=== PATIENT | male | born 1945 | race Caucasian/White ===

== ENCOUNTER → 2018-11-13 15:05 | Outpatient (CLI) | payer MEDICARE, BC, SELFPAY ==
[2018-11-13 14:26] VITALS: BMI 34.2
[2018-11-13 17:08] LABS: T4 Total, Thyroxin 7.1 ug/dL (4.5-12.1); Thyroid Stim Hormone (TSH) 1.64 uIU/mL (0.358-3.74)
== END ==
PROVIDERS: Family Provider Internal Medicine; PCP Internal Medicine; Referring Provider Internal Medicine Cardiovascular Disease; Visit Provider Internal Medicine Cardiovascular Disease
DX: R00.2 Palpitations (principal)
CPT/HCPCS: 36415; 84436; 84443

== ENCOUNTER → 2018-11-15 10:54 | Outpatient (CLI) | payer MEDICARE, BC, SELFPAY ==
[2018-11-13 14:26] VITALS: BMI 34.2
== END ==
PROVIDERS: Family Provider Internal Medicine; PCP Internal Medicine; Referring Provider Internal Medicine Cardiovascular Disease; Visit Provider Internal Medicine Cardiovascular Disease
DX: R00.2 Palpitations (principal)
CPT/HCPCS: 93225; 93226

== ENCOUNTER → 2018-12-02 13:37 | Outpatient (CLI) | payer MEDICARE, BC, SELFPAY ==
[2018-11-13 14:26] VITALS: BMI 34.2
--- NOTE | 2018-12-02 13:38 | ECHOCS_ITS ---
Reason For Study: AFIB Procedure This was a 2D Doppler, Color Flow transthoracic echocardiogram. The study was technically difficult. Contrast injection was performed. Exam performed in department. Left Ventricle Normal LV size. Left ventricular systolic function is normal. The estimated ejection fraction is 60 %. Stage 1 diastolic dysfunction. No regional wall motion abnormalities noted. Right Ventricle Normal RV size. Normal systolic function. Atria Normal left atrium. Normal right atrium. Mitral Valve Normal mitral valve. Tricuspid Valve Normal tricuspid valve. Mild (1+) tricuspid valve insufficiency. Pulmonary artery systolic pressure is 34 mmHg. Aortic Valve The aortic valve is not well visualized. Pulmonic Valve The pulmonic valve is not well visualized. Great Vessels Normal aortic root. The pulmonary artery is normal size. Normal inferior vena cava. Pericardium/Pleural No pericardial effusion. Medication 22 gauge I.V. with prn adaptor inserted into right arm. Diluted definity 3.5ml given slow IV push to enhance endocardial definition. MMode/2D Measurements & Calculations LVIDd: 4.8 cm IVSd: 1.0 cm Ao root diam: 3.8 cm LVIDs: 3.2 cm LVPWd: 1.0 cm FS: 33.9 % LAV(MOD-bp): 68.2 ml LVAd ap4: 31.0 cm2 SV(MOD-sp4): 73.3 ml LAV(MOD-bp) Indexed: 29.9 ml/m2 EDV(MOD-sp4): 103.9 ml LAV(MOD-sp2): 79.4 ml EDV(sp4-el): 107.2 ml LAV(MOD-sp4): 56.9 ml LVAs ap4: 14.4 cm2 ESV(MOD-sp4): 30.6 ml ESV(sp4-el): 31.4 ml EF(MOD-sp4): 70.5 % EF(sp4-el): 70.7 % SV(sp4-el): 75.8 ml LA A4 area: 20.3 cm2 LA dimension(2D): 4.1 cm RA A4 area: 15.1 cm2 Time Measurements MV dec time: 0.21 sec Doppler Measurements & Calculations MV E max abdiaziz: 70.0 cm/sec Lat Peak E' Abdiaziz: 6.5 cm/sec Med Peak E' Abdiaziz: 5.7 cm/sec MV A max abdiaziz: 92.7 cm/sec E/E' lat: 10.7 E/E' med: 12.3 MV E/A: 0.76 Ao V2 max: 144.5 cm/sec LV V1 max: 112.4 cm/sec PA V2 max: 108.1 cm/sec Ao max P.4 mmHg LV V1 max P.1 mmHg PI end-d abdiaziz: 128.5 cm/sec TR max abdiaziz: 266.5 cm/sec TR max P.5 mmHg Interpretation Summary Normal LV size. Left ventricular systolic function is normal. The estimated ejection fraction is 60 %. Stage 1 diastolic dysfunction. Contrast injection was performed. Ordering Physician: Moris Mendes Referring Physician: CHRISTOFER DUBOIS Performed By: Kandice Becker, AZAR, RVT
== END ==
PROVIDERS: Family Provider Internal Medicine; PCP Internal Medicine; Referring Provider Internal Medicine Cardiovascular Disease; Visit Provider Internal Medicine Cardiovascular Disease
DX: I48.91 Unspecified atrial fibrillation (principal); I48.92 Unspecified atrial flutter; R00.2 Palpitations
CPT/HCPCS: 93306; Q9957; A4216; C8929

== ENCOUNTER → 2019-02-04 17:19 | Outpatient (CLI) | payer MEDICARE, BC, SELFPAY ==
[2018-11-13 14:26] VITALS: BMI 34.2
[2019-02-04 18:13] LABS: Absolute Lymphocyte Count 1.75 X10^3/uL (0.83-4.51); Absolute Neutrophil Count 4.2 X10^3/uL (2.0-7.7); Basophil# 0.01 X10^3/uL; Basophil% 0.1 % (0-1); Eosinophil# 0.25 X10^3/uL; Eosinophils% 3.5 % (0-5); Hematocrit 43.6 % (40-54); Hemoglobin 14.9 g/dL (13.0-16.5); Lymphocyte # 1.75 X10^3/ul (4.0); Lymphocyte % 24.8 % (19-41); Mean Corp Hgb Conc 34.2 g/dL (32-36); Mean Corpuscular Hgb 31.4 pg (27.0-32.0); Mean Platelet Vol. 9.8 fl (6.2-12.0); Monocyte# 0.83 X10^3/uL; Monocyte% 11.8 % (0-10); NRBC Flagged by Analyzer 0 % (0-5); Neutrophil % 59.5 % (47-70); Platelet Count 171 K/mm3 (150-450); RBC Distribution Width SD 43.4 fl (35.1-43.9); Red Blood Count 4.74 M/mm3 (4.6-6.2); White Blood Count 7.1 K/mm3 (4.4-11.0)
[2019-02-04 18:19] LABS: ALB/GLOB Ratio 0.9 RATIO (0.9-2.4); AST(SGOT) 20 U/L (15-37); Alanine Aminotransfer ALT/SGPT 17 U/L (16-61); Albumin, Serum 3.4 g/dL (3.2-5.0); Alkaline Phosphatase 71 U/L (45-117); Anion Gap 4 (5-15); BUN 16 mg/dL (7-18); BUN/Creat Ratio 19.3 RATIO (10-20); Calcium,Total 9.1 mg/dL (8.5-10.1); Chloride 104 mmol/L (98-107); Creatinine, Serum 0.83 mg/dL (0.70-1.30); EST Glomerular Filtration Rate 96 mL/min (>60); Est Glom Filt Rate - Afr Amer 116 mL/min (>60); Globulin 3.6 g/dL (2.2-4.2); Glucose 97 mg/dL (74-106); Potassium 3.9 mmol/L (3.5-5.1); Sodium Level 139 mmol/L (136-145); Thyroid Stim Hormone (TSH) 3.11 uIU/mL (0.358-3.74)
== END ==
PROVIDERS: Visit Provider Family Medicine Geriatric Medicine
DX: I10 Essential (primary) hypertension (principal)
CPT/HCPCS: 36415; 80053; 84443; 85025

== ENCOUNTER → 2019-02-18 09:16 | Outpatient (CLI) | payer MEDICARE, BC, SELFPAY ==
[2018-11-13 14:26] VITALS: BMI 34.2
--- NOTE | 2019-02-18 09:44 | US_ITS ---
PROCEDURES: ULTRASOUND AORTA REASON FOR EXAM: Male, 74 years old. Aortic aneurysm screening TECHNIQUE: Ultrasound evaluation of the aorta was performed with real-time and static barger-scale imaging. COMPARISON: None. FINDINGS: There is no elongation or tortuosity of the abdominal aorta. There is mild multifocal plaquing. Aorta measures: Proximal 2.2 cm. Middle 1.3 cm. Distal 1.7 cm. Aorta measure transversely: Proximal 2.2 cm. Middle 1.6 cm. Distal 1.8 cm. Right iliac artery measures: 1.2 cm. Right iliac artery measure transversely: 1.4 cm. Left iliac artery measures: 1.3 cm. Left iliac artery measure transversely: 1.5 cm. There is no demonstrated aneurysm.. US/Aorta IMPRESSION: Atherosclerotic changes without evidence for aneurysm. Electronically Signed: Mani Mueller MD at 17:04 EDT , Service support ,
== END ==
PROVIDERS: Family Provider Family Medicine Geriatric Medicine; PCP Family Medicine Geriatric Medicine; Referring Provider Family Medicine Geriatric Medicine; Visit Provider Family Medicine Geriatric Medicine
DX: Z13.89 Encounter for screening for other disorder (principal)
CPT/HCPCS: 76775

== ENCOUNTER → 2019-10-08 13:29 | Outpatient (CLI) | payer MEDICARE, BC, SELFPAY ==
[2019-04-03 11:55] VITALS: BMI 34.2
[2019-10-08 15:53] LABS: Absolute Lymphocyte Count 1.61 X10^3/uL (0.83-4.51); Absolute Neutrophil Count 4.2 X10^3/uL (2.0-7.7); Basophil# 0.02 X10^3/uL; Basophil% 0.3 % (0-1); Eosinophil# 0.11 X10^3/uL; Eosinophils% 1.7 % (0-5); Hematocrit 45.5 % (40-54); Hemoglobin 15.7 g/dL (13.0-16.5); Lymphocyte # 1.61 X10^3/ul (4.0); Lymphocyte % 24.2 % (19-41); Mean Corp Hgb Conc 34.5 g/dL (32-36); Mean Corpuscular Hgb 31.9 pg (27.0-32.0); Mean Corpuscular Volume 92.5 fL (80-94); Mean Platelet Vol. 10.1 fl (6.2-12.0); Monocyte# 0.65 X10^3/uL; Monocyte% 9.8 % (0-10); NRBC Flagged by Analyzer 0 % (0-5); Neutrophil # 4.23 X10^3/uL (2.7-7.7); Neutrophil % 63.7 % (47-70); Platelet Count 192 K/mm3 (150-450); RBC Distribution Width CV 12.6 % (11.6-14.6); Red Blood Count 4.92 M/mm3 (4.6-6.2); White Blood Count 6.6 K/mm3 (4.4-11.0)
[2019-10-08 16:09] LABS: Vitamin D,25 Hydroxy 33.8 ng/mL
[2019-10-08 16:16] LABS: AST(SGOT) 24 U/L (15-37); Alanine Aminotransfer ALT/SGPT 26 U/L (16-61); Albumin, Serum 3.7 g/dL (3.2-5.0); Alkaline Phosphatase 77 U/L (45-117); Anion Gap 6 (5-15); BUN 17 mg/dL (7-18); BUN/Creat Ratio 17.5 RATIO (10-20); Calcium,Total 9.2 mg/dL (8.5-10.1); Chloride 104 mmol/L (98-107); Creatinine, Serum 0.97 mg/dL (0.70-1.30); EST Glomerular Filtration Rate 80 mL/min (>60); Est Glom Filt Rate - Afr Amer 97 mL/min (>60); Globulin 3.6 g/dL (2.2-4.2); Glucose 135 mg/dL (74-106); Potassium 3.5 mmol/L (3.5-5.1); Protein, Total 7.3 g/dL (6.4-8.2); Sodium Level 140 mmol/L (136-145)
[2019-10-09 09:40] LABS: Hemoglobin A1c 5.5 % (3.8-5.6)
== END ==
PROVIDERS: PCP Family Medicine Geriatric Medicine; Visit Provider Family Medicine Geriatric Medicine
DX: E55.9 Vitamin D deficiency, unspecified (principal); I10 Essential (primary) hypertension; R79.9 Abnormal finding of blood chemistry, unspecified
CPT/HCPCS: 36415; 80053; 82306; 83036; 84443; 85025

== ENCOUNTER → 2020-02-10 14:04 | Outpatient (CLI) | payer MEDICARE, BC, SELFPAY ==
[2019-04-03 11:55] VITALS: BMI 34.2
[2020-02-10 18:20] LABS: Absolute Lymphocyte Count 1.48 X10^3/uL (0.83-4.51); Absolute Neutrophil Count 3.7 X10^3/uL (2.0-7.7); Basophil# 0.03 X10^3/uL; Basophil% 0.5 % (0-1); Eosinophil# 0.12 X10^3/uL; Hematocrit 45.8 % (40-54); Hemoglobin 15.7 g/dL (13.0-16.5); Lymphocyte # 1.48 X10^3/ul (4.0); Lymphocyte % 24.6 % (19-41); Mean Corp Hgb Conc 34.3 g/dL (32-36); Mean Corpuscular Hgb 32.2 pg (27.0-32.0); Mean Corpuscular Volume 93.9 fL (80-94); Mean Platelet Vol. 9.9 fl (6.2-12.0); Monocyte# 0.67 X10^3/uL; Monocyte% 11.1 % (0-10); NRBC Flagged by Analyzer 0 % (0-5); Neutrophil # 3.69 X10^3/uL (2.7-7.7); Neutrophil % 61.3 % (47-70); Platelet Count 200 K/mm3 (150-450); RBC Distribution Width CV 12.6 % (11.6-14.6); RBC Distribution Width SD 43.5 fl (35.1-43.9); Red Blood Count 4.88 M/mm3 (4.6-6.2)
[2020-02-10 18:50] LABS: Vitamin D,25 Hydroxy 57.4 ng/mL
[2020-02-10 19:02] LABS: AST(SGOT) 30 U/L (15-37); Alanine Aminotransfer ALT/SGPT 30 U/L (16-61); Albumin, Serum 3.6 g/dL (3.2-5.0); Alkaline Phosphatase 103 U/L (45-117); Anion Gap 6 (5-15); BUN 18 mg/dL (7-18); BUN/Creat Ratio 20.2 RATIO (10-20); Calcium,Total 9.1 mg/dL (8.5-10.1); Chloride 103 mmol/L (98-107); Creatinine, Serum 0.89 mg/dL (0.70-1.30); EST Glomerular Filtration Rate 88 mL/min (>60); Est Glom Filt Rate - Afr Amer 107 mL/min (>60); Globulin 3.6 g/dL (2.2-4.2); Glucose 133 mg/dL (74-106); Potassium 3.2 mmol/L (3.5-5.1); Protein, Total 7.2 g/dL (6.4-8.2); Sodium Level 139 mmol/L (136-145); Thyroid Stim Hormone (TSH) 1.68 uIU/mL (0.358-3.74)
== END ==
PROVIDERS: PCP Family Medicine Geriatric Medicine; Visit Provider Family Medicine Geriatric Medicine
DX: E55.9 Vitamin D deficiency, unspecified (principal); I10 Essential (primary) hypertension
CPT/HCPCS: 36415; 80053; 82306; 84443; 85025

== ENCOUNTER → 2020-02-20 10:34 | Outpatient (CLI) | payer MEDICARE, BC, SELFPAY ==
[2019-04-03 11:55] VITALS: BMI 34.2
[2020-02-20 11:56] LABS: Anion Gap 6 (5-15); BUN 14 mg/dL (7-18); BUN/Creat Ratio 14.9 RATIO (10-20); Calcium,Total 9.2 mg/dL (8.5-10.1); Chloride 106 mmol/L (98-107); Creatinine, Serum 0.94 mg/dL (0.70-1.30); EST Glomerular Filtration Rate 83 mL/min (>60); Est Glom Filt Rate - Afr Amer 100 mL/min (>60); Glucose 105 mg/dL (74-106); Sodium Level 140 mmol/L (136-145)
[2020-02-20 12:03] LABS: Hemoglobin A1c 5.5 % (3.8-5.6)
== END ==
PROVIDERS: PCP Family Medicine Geriatric Medicine; Visit Provider Family Medicine Geriatric Medicine
DX: E87.6 Hypokalemia (principal); R79.9 Abnormal finding of blood chemistry, unspecified
CPT/HCPCS: 36415; 80048; 83036

== ENCOUNTER → 2020-08-25 14:49 | Outpatient (CLI) | payer MEDICARE, SELFPAY ==
[2020-03-23 11:39] VITALS: BMI 33.9
[2020-08-25 16:15] LABS: Absolute Lymphocyte Count 1.58 X10^3/uL (0.83-4.51); Basophil# 0.02 X10^3/uL; Basophil% 0.3 % (0-1); Eosinophil# 0.17 X10^3/uL; Eosinophils% 2.2 % (0-5); Hematocrit 45.6 % (40-54); Hemoglobin 14.9 g/dL (13.0-16.5); Lymphocyte # 1.58 X10^3/ul (0.83-4.51); Mean Corp Hgb Conc 32.7 g/dL (32-36); Mean Corpuscular Hgb 30.5 pg (27.0-32.0); Mean Corpuscular Volume 93.4 fL (80-94); Mean Platelet Vol. 10.1 fl (6.2-12.0); Monocyte# 1.07 X10^3/uL; Monocyte% 13.6 % (0-10); NRBC Flagged by Analyzer 0 % (0-5); Neutrophil # 5.03 X10^3/uL (2.7-7.7); Neutrophil % 63.6 % (47-70); Platelet Count 179 K/mm3 (150-450); RBC Distribution Width CV 12.7 % (11.6-14.6); RBC Distribution Width SD 43.4 fl (35.1-43.9); Red Blood Count 4.88 M/mm3 (4.6-6.2); White Blood Count 7.9 K/mm3 (4.4-11.0)
[2020-08-25 16:21] LABS: Vitamin D,25 Hydroxy 77.2 ng/mL
[2020-08-25 16:34] LABS: ALB/GLOB Ratio 1.1 RATIO (0.9-2.4); AST(SGOT) 23 U/L (15-37); Alanine Aminotransfer ALT/SGPT 25 U/L (16-61); Albumin, Serum 3.5 g/dL (3.2-5.0); Alkaline Phosphatase 67 U/L (45-117); Anion Gap 2 (5-15); BUN 18 mg/dL (7-18); BUN/Creat Ratio 18.7 RATIO (10-20); Calcium,Total 9.3 mg/dL (8.5-10.1); Chloride 103 mmol/L (98-107); Creatinine, Serum 0.96 mg/dL (0.70-1.30); EST Glomerular Filtration Rate 80 mL/min (>60); Est Glom Filt Rate - Afr Amer 97 mL/min (>60); Globulin 3.2 g/dL (2.2-4.2); Glucose 102 mg/dL (74-106); Potassium 3.3 mmol/L (3.5-5.1); Protein, Total 6.7 g/dL (6.4-8.2); Sodium Level 139 mmol/L (136-145); Thyroid Stim Hormone (TSH) 2.19 uIU/mL (0.358-3.74)
== END ==
PROVIDERS: PCP Family Medicine Geriatric Medicine; Visit Provider Family Medicine Geriatric Medicine
DX: E55.9 Vitamin D deficiency, unspecified (principal); F52.8 Other sexual dysfunction not due to a substance or known physiological condition; I10 Essential (primary) hypertension
CPT/HCPCS: 36415; 80053; 82306; 84403; 84443; 85025

== ENCOUNTER → 2020-08-26 10:49 | Outpatient (CLI) | payer MEDICARE, SELFPAY ==
[2020-03-23 11:39] VITALS: BMI 33.9
--- NOTE | 2020-08-26 10:53 | RAD_ITS ---
STUDY: X-RAY - LUMBAR SPINE REASON FOR EXAM: Male, 75 years old. BACK PAIN TECHNIQUE: 3 view(s) of the lumbar spine were obtained. COMPARISON: None FINDINGS: Normal lumbar lordosis. There is no substantial scoliosis. There is a normal alignment of the vertebrae. There is multilevel endplate spondylosis of the lumbar vertebrae. There is multi-level degenerative disc disease with multi-level disc space narrowing. The soft tissue structures are unremarkable. RAD/Lumbar Spine 2 or 3 Views IMPRESSION: Mild diffuse degenerative disc disease. MRI would be useful. Electronically Signed: Quinton López MD at 11:49 EDT Tel , Service support ,
--- NOTE | 2020-08-26 10:53 | RAD_ITS ---
STUDY: X-RAY - RIGHT KNEE REASON FOR EXAM: Male, 75 years old. KNEE PAIN TECHNIQUE: 4 view(s) of the knee. COMPARISON: None. FINDINGS: Normal visualized distal femur. Normal visualized proximal tibia and fibula. Normal proximal tibiofibular articulation. There is mild degenerative arthrosis of the medial femorotibial compartment. Normal lateral femorotibial compartment. Normal patellofemoral articulation. Calcification of the distal quadriceps tendon. RAD/Knee 3 Views IMPRESSION: Degenerative arthrosis. Electronically Signed: Quinton López MD at 11:49 EDT Tel , Service support ,
== END ==
PROVIDERS: PCP Family Medicine Geriatric Medicine; Visit Provider Family Medicine Geriatric Medicine
DX: M54.5 Low back pain (principal); M25.569 Pain in unspecified knee
CPT/HCPCS: 72100; 73562

== ENCOUNTER → 2020-09-06 10:08 | Outpatient (CLI) | payer MEDICARE, SELFPAY ==
[2020-03-23 11:39] VITALS: BMI 33.9
[2020-09-06 12:32] LABS: Anion Gap 6 (5-15); BUN 17 mg/dL (7-18); BUN/Creat Ratio 19.3 RATIO (10-20); Calcium,Total 8.9 mg/dL (8.5-10.1); Chloride 106 mmol/L (98-107); Creatinine, Serum 0.88 mg/dL (0.70-1.30); EST Glomerular Filtration Rate 89 mL/min (>60); Est Glom Filt Rate - Afr Amer 108 mL/min (>60); Glucose 117 mg/dL (74-106); Potassium 3.7 mmol/L (3.5-5.1); Sodium Level 141 mmol/L (136-145)
== END ==
PROVIDERS: PCP Family Medicine Geriatric Medicine; Visit Provider Family Medicine Geriatric Medicine
DX: E87.6 Hypokalemia (principal)
CPT/HCPCS: 36415; 80048

== ENCOUNTER → 2021-02-14 14:25 | Outpatient (CLI) | payer MEDICARE, SELFPAY ==
[2021-02-14 17:37] LABS: Absolute Lymphocyte Count 1.51 X10^3/uL (0.83-4.51); Absolute Neutrophil Count 3.5 X10^3/uL (2.0-7.7); Basophil# 0.02 X10^3/uL; Basophil% 0.3 % (0-1); Eosinophil# 0.16 X10^3/uL; Eosinophils% 2.7 % (0-5); Hemoglobin 15.8 g/dL (13.0-16.5); Lymphocyte # 1.51 X10^3/ul (0.83-4.51); Lymphocyte % 25.4 % (19-41); Mean Corp Hgb Conc 35.1 g/dL (32-36); Mean Corpuscular Hgb 32.4 pg (27.0-32.0); Mean Corpuscular Volume 92.4 fL (80-94); Monocyte# 0.76 X10^3/uL; Monocyte% 12.8 % (0-10); NRBC Flagged by Analyzer 0 % (0-5); Neutrophil # 3.46 X10^3/uL (2.7-7.7); Neutrophil % 58.3 % (47-70); Platelet Count 190 K/mm3 (150-450); RBC Distribution Width CV 13.2 % (11.6-14.6); RBC Distribution Width SD 45.4 fl (35.1-43.9); Red Blood Count 4.87 M/mm3 (4.6-6.2); White Blood Count 5.9 K/mm3 (4.4-11.0)
[2021-02-14 17:57] LABS: Vitamin D,25 Hydroxy 92.1 ng/mL
[2021-02-14 18:07] LABS: ALB/GLOB Ratio 0.9 RATIO (0.9-2.4); AST(SGOT) 24 U/L (15-37); Alanine Aminotransfer ALT/SGPT 24 U/L (16-61); Albumin, Serum 3.3 g/dL (3.2-5.0); Alkaline Phosphatase 63 U/L (45-117); Anion Gap 7 (5-15); BUN 17 mg/dL (7-18); BUN/Creat Ratio 18.4 RATIO (10-20); Calcium,Total 9.1 mg/dL (8.5-10.1); Chloride 104 mmol/L (98-107); Creatinine, Serum 0.92 mg/dL (0.70-1.30); EST Glomerular Filtration Rate 84 mL/min (>60); Est Glom Filt Rate - Afr Amer 102 mL/min (>60); Globulin 3.5 g/dL (2.2-4.2); Glucose 129 mg/dL (74-106); Potassium 3.7 mmol/L (3.5-5.1); Protein, Total 6.8 g/dL (6.4-8.2); Sodium Level 140 mmol/L (136-145)
== END ==
PROVIDERS: PCP Family Medicine Geriatric Medicine; Visit Provider Family Medicine Geriatric Medicine
DX: I10 Essential (primary) hypertension (principal); F52.8 Other sexual dysfunction not due to a substance or known physiological condition; E55.9 Vitamin D deficiency, unspecified
CPT/HCPCS: 36415; 80053; 82306; 84403; 84443; 85025

== ENCOUNTER → 2021-09-05 | Outpatient (CLI) | payer MEDICARE, SELFPAY ==
[2021-09-05 17:14] LABS: Absolute Neutrophil Count 4.2 X10^3/uL (2.0-7.7); Basophil# 0.01 X10^3/uL; Basophil% 0.1 % (0-1); Eosinophil# 0.14 X10^3/uL; Eosinophils% 2.1 % (0-5); Hematocrit 43.5 % (40-54); Hemoglobin 15.4 g/dL (13.0-16.5); Lymphocyte % 24.9 % (19-41); Mean Corp Hgb Conc 35.4 g/dL (32-36); Mean Corpuscular Hgb 32.6 pg (27.0-32.0); Monocyte# 0.74 X10^3/uL; Monocyte% 10.9 % (0-10); NRBC Flagged by Analyzer 0 % (0-5); Neutrophil # 4.18 X10^3/uL (2.7-7.7); Neutrophil % 61.3 % (47-70); Platelet Count 183 K/mm3 (150-450); RBC Distribution Width CV 12.5 % (11.6-14.6); RBC Distribution Width SD 42.4 fl (35.1-43.9); Red Blood Count 4.73 M/mm3 (4.6-6.2); White Blood Count 6.8 K/mm3 (4.4-11.0)
[2021-09-05 17:26] LABS: Vitamin D,25 Hydroxy 54.7 ng/mL
[2021-09-05 17:36] LABS: ALB/GLOB Ratio 1.1 RATIO (0.9-2.4); AST(SGOT) 23 U/L (15-37); Alanine Aminotransfer ALT/SGPT 25 U/L (16-61); Albumin, Serum 3.6 g/dL (3.2-5.0); Alkaline Phosphatase 60 U/L (45-117); Anion Gap 7 (5-15); BUN 19 mg/dL (7-18); BUN/Creat Ratio 18.1 RATIO (10-20); Chloride 104 mmol/L (98-107); Creatinine, Serum 1.05 mg/dL (0.70-1.30); EST Glomerular Filtration Rate 73 mL/min (>60); Est Glom Filt Rate - Afr Amer 88 mL/min (>60); Globulin 3.3 g/dL (2.2-4.2); Glucose 137 mg/dL (74-106); Potassium 3.5 mmol/L (3.5-5.1); Protein, Total 6.9 g/dL (6.4-8.2); Sodium Level 139 mmol/L (136-145); Thyroid Stim Hormone (TSH) 1.81 uIU/mL (0.358-3.74)
[2021-09-06 10:53] LABS: Hemoglobin A1c 5.3 % (3.8-5.6)
== END | disposition home or self-care (01) ==
LOC: POLAB3 11:34
PROVIDERS: PCP Family Medicine Geriatric Medicine; Visit Provider Family Medicine Geriatric Medicine
DX: I10 Essential (primary) hypertension (principal); F52.8 Other sexual dysfunction not due to a substance or known physiological condition; E55.9 Vitamin D deficiency, unspecified; R73.9 Hyperglycemia, unspecified
CPT/HCPCS: 36415; 80053; 82306; 83036; 84403; 84443; 85025

== ENCOUNTER → 2021-11-18 | Outpatient (CLI) | payer MEDICARE, SELFPAY ==
--- NOTE | 2021-11-18 10:55 | RAD_ITS ---
STUDY: X-RAY - PELVIS AND LEFT HIP REASON FOR EXAM: Male, 76 years old. HIP PAIN TECHNIQUE: XR Hip Unilateral with Pelvis when performed; 2-3 Views COMPARISON: None. FINDINGS: There is a non-specific bowel gas pattern. Normal visualized soft tissue structures. There are degenerative changes of the lumbar spine. Normal bilateral iliac wings, sacroiliac joints and visualized sacrum. Normal bilateral superior and inferior pubic rami. Normal pubic symphysis. Normal bilateral ischial tuberosities. Normal visualized femoral head. Normal acetabulum. There is mild articular joint space narrowing of the hip. RAD/HIP, UNI W/ Pelvis 2-3 Views IMPRESSION: Degenerative findings of the hips. Electronically Signed: Chaparro Hughes MD at 16:55 EDT ,
== END | disposition home or self-care (01) ==
LOC: RAD 10:51
PROVIDERS: PCP Family Medicine Geriatric Medicine; Referring Provider Family Medicine Geriatric Medicine; Visit Provider Family Medicine Geriatric Medicine
DX: M25.552 Pain in left hip (principal)
CPT/HCPCS: 73502

== ENCOUNTER 2022-01-06 08:56 | Inpatient (IN) | payer MEDICARE, SELFPAY ==
[2022-01-06] VITALS (13 sets, daily range): BP systolic 97–156; BP diastolic 50–121; PULSE 66–151; RESP 16–21; TEMP 35.8–37.1; O2SAT 94–96; BMI 34.8; BMI 35.4
--- NOTE | 2022-01-06 09:20 | EKG12_ITS ---
Test Reason : PALPS Blood Pressure : / mmHG Vent. Rate : 166 BPM Atrial Rate : 000 BPM P-R Int : 000 ms QRS Dur : 082 ms QT Int : 274 ms P-R-T Axes : 000 -35 030 degrees QTc Int : 455 ms Supraventricular tachycardia with Premature supraventricular complexes Left axis deviation Inferior infarct , age undetermined Abnormal ECG Confirmed by MANJU SINGER, KEKE ([id number]), editor city CHRIS BEAR ([id number]) on 01/09/2022 9:35:57 AM Referred By: TRUDY Confirmed By:LINDSAY NUNES MD
--- NOTE | 2022-01-06 09:23 | EX.ED.DYSGE1 ---
HPI <LIBAN Mabry - Last Filed: 01/06/22 10:55> History of Present Illness Chief Complaint: Palpitations Narrative Narrative: 76-year-old male with history of hypertension, arthritis, obesity presents to the emergency department for palpitations, diaphoresis. Patient states that last evening during his sleep, he felt that his heart was racing, he also was sweating. This morning he was on his way to physical therapy, when he was sweating profusely, he did see cardiology who saw that he had a rapid heart rate and sent him to the emergency department. Patient denies any shortness of breath. Patient states he has no pain. He does take metoprolol so he states that his resting heart rate is usually lower. [facility] <LIBAN Mabry - Last Filed: 01/06/22 10:55> [facility] Medical History (Updated 01/06/22 @ 10:55 by LIBAN Mabry) Benign neoplasm of colon Diverticulosis Essential (primary) hypertension IBS (irritable bowel syndrome) Lichenoid keratosis Melanoma Obesity Obstructive sleep apnea Home Medications fluticasone propionate 50 mcg/actuation nasal spray,suspension (Allergy Relief (fluticasone)) 2 spray intranasal DAILY PRN 11/12/18 [History Last Taken Unknown] hydrochlorothiazide 25 mg tablet 25 mg PO DAILY 11/12/18 [History Last Taken Unknown] losartan 50 mg tablet (Cozaar) 50 mg PO DAILY 11/12/18 [History Last Taken Unknown] multivitamin 1 tab PO DAILY 11/12/18 [History Last Taken Unknown] metoprolol succinate 100 mg tablet,extended release 24 hr (Toprol XL) 100 mg PO DAILY #90 tabs 06/21/21 [Rx Last Taken Unknown] doxycycline hyclate 100 mg capsule 100 mg PO DAILY 01/06/22 [History Last Taken Unknown] potassium chloride 10 mEq tablet,extended release(part/cryst) (Klor-Con M) 10 meq PO DAILY 01/06/22 [History Last Taken Unknown] Allergy/AdvReac Type Severity Reaction Status Date / Time LUC Inhibitors AdvReac cough Verified 01/06/22 08:57 Family History Father Cancer Hypertension Heart disease afib Mother No problems noted. Surgical History H/O colonoscopy with polypectomy History of appendectomy History of tonsillectomy History of vasectomy Social History (Updated 03/23/20 @ 14:[address] Moris Mendes MD) Smoking Status: Never smoker ROS <LIBAN Mabry - Last Filed: 01/06/22 10:55> ROS ED ROS Narrative Constitutional: Negative for fever, chills, weight loss, weakness. Positive for profuse sweating Eyes: Negative for vision loss, vision change, double vision ENT: Negative for any sore throat, ear pain, congestion Cardiovascular: Negative for any chest pain, tightness,. Positive for palpitations Respiratory: Negative for any cough, sputum production, hemoptysis, dyspnea, dyspnea on exertion, orthopnea Gastrointestinal: Negative for any abdominal pain, nausea, vomiting, diarrhea, constipation, blood in stool, blood in vomit : Negative for any urinary frequency, dysuria, retention, blood in urine Muscle skeletal: Negative for any muscle joint pain, stiffness, myalgias, arthralgias, neck pain, back pain Neurological: Negative for any headache, syncope, numbness or tingling, dizziness Skin: Negative for any rashes, lumps, itching, abrasions, lacerations Psychiatric: Negative for any depression, anxiety, stress, suicidal ideation, homicidal ideation Hematologic: Negative for any easy bruising, excessive bruising, easy bleeding Allergies: Negative for any eczema, hives, rash EXAM <LIBAN Mabry - Last Filed: 01/06/22 10:55> Physical Exam Narrative Exam Narrative: Vital signs reviewed. Patient is alert and orient x4, patient is acting appropriate. Patient appears to be in no respiratory distress. Patient is tachycardic with a heart rate between 1 50-1 70 HEET: Head normocephalic atraumatic, TMs clear bilaterally. Posterior pharynx is clear, moist mucous membranes. Nares clear bilaterally. Neck: Supple with no lymphadenopathy or tenderness. No signs of meningismus, negative jolt sign. Cardiac: Tachycardic rate, irregular no murmurs gallops or rubs, equal peripheral pulses bilaterally. Respiratory: Lungs clear to auscultation bilaterally. No chest tenderness. Abdomen: Soft, nontender, nondistended. No abdominal bruit or pulsatile masses. No hepatosplenomegaly Extremities: No peripheral edema, no signs of gross trauma or deformity. Active full range of motion of all extremities. Neuro: Cranial nerves II through XII intact, no focal neurological deficits. Skin: Clean dry and intact with no rash, purpura, petechiae, vesicles or pustules. Backs/flank: No CVA tenderness, no midline spinal tenderness, no deformity. Psych: Normal mood and affect. No SI, HI or acute psychosis. Const Vital Signs: 01/06/22 08:58 01/06/22 09:07 01/06/22 09:07 Temperature 96.5 F L Temperature Source Temporal Pulse Rate 88 151 H Respiratory Rate 20 H 20 H Respiratory Effort Normal Non-Labored Blood Pressure 156/121 H Blood Pressure Mean 132 Pulse Ox 94 96 Oxygen Delivery Method Room Air Room Air 01/06/22 09:26 01/06/22 09:39 01/06/22 10:53 Temperature Temperature Source Pulse Rate 124 H 134 H Respiratory Rate 18 20 H Respiratory Effort Blood Pressure 109/64 125/114 H Blood Pressure Mean 79 117 Pulse Ox 95 94 94 Oxygen Delivery Method Room Air Room Air Room Air 01/06/22 11:00 01/06/22 11:05 Temperature 97.4 F L Temperature Source Temporal Pulse Rate 144 H 149 H Respiratory Rate 17 21 H Respiratory Effort Blood Pressure 97/50 L 113/78 Blood Pressure Mean 65 89 Pulse Ox 95 94 Oxygen Delivery Method Room Air Room Air <Dr. Jemal Price, DO - Last Filed: 01/06/22 12:00> Physical Exam Const Vital Signs: 01/06/22 08:58 01/06/22 09:07 01/06/22 09:07 Temperature 96.5 F L Temperature Source Temporal Pulse Rate 88 151 H Respiratory Rate 20 H 20 H Respiratory Effort Normal Non-Labored Blood Pressure 156/121 H Blood Pressure Mean 132 Pulse Ox 94 96 Oxygen Delivery Method Room Air Room Air 01/06/22 09:26 01/06/22 09:39 01/06/22 10:53 Temperature Temperature Source Pulse Rate 124 H 134 H Respiratory Rate 18 20 H Respiratory Effort Blood Pressure 109/64 125/114 H Blood Pressure Mean 79 117 Pulse Ox 95 94 94 Oxygen Delivery Method Room Air Room Air Room Air 01/06/22 11:00 01/06/22 11:05 Temperature 97.4 F L Temperature Source Temporal Pulse Rate 144 H 149 H Respiratory Rate 17 21 H Respiratory Effort Blood Pressure 97/50 L 113/78 Blood Pressure Mean 65 89 Pulse Ox 95 94 Oxygen Delivery Method Room Air Room Air [facility] <LIBAN Mabry - Last Filed: 01/06/22 10:55> [facility] Lab Data Labs: Laboratory Results - last 24 hr 01/06/22 01/06/22 01/06/22 09:15 09:15 09:15 WBC 11.9 H RBC 5.69 Hgb 18.2 H* Hct 53.6 MCV 94.2 H MCH 32.0 MCHC 34.0 RDW Std Deviation 46.0 H RDW Coeff of Denilson 13.2 Plt Count 158 MPV 10.1 Immature Gran % (Auto) 0.800 Neut % (Auto) 84.2 H Lymph % (Auto) 6.0 L Piatt % (Auto) 8.4 Eos % (Auto) 0.4 Baso % (Auto) 0.2 Absolute Neuts (auto) 10.0 H Absolute Lymphs (auto) 0.71 L Nucleated RBC % 0 Sodium 135 L Potassium 3.5 Chloride 102 Carbon Dioxide 27.0 Anion Gap 6 BUN 16 Creatinine 1.15 Estim Creat Clear Calc 56.38 Est GFR (MDRD) Af Amer 79 Est GFR (MDRD) Non-Af 65 BUN/Creatinine Ratio 13.9 Glucose 227 H Calcium 8.9 Total Bilirubin Direct Bilirubin AST ALT Alkaline Phosphatase Troponin I High Sens 12 B-Natriuretic Peptide 43.6 Total Protein Albumin Globulin TSH 2.12 01/06/22 09:15 WBC RBC Hgb Hct MCV MCH MCHC RDW Std Deviation RDW Coeff of Denilson Plt Count MPV Immature Gran % (Auto) Neut % (Auto) Lymph % (Auto) Piatt % (Auto) Eos % (Auto) Baso % (Auto) Absolute Neuts (auto) Absolute Lymphs (auto) Nucleated RBC % Sodium Potassium Chloride Carbon Dioxide Anion Gap BUN Creatinine Estim Creat Clear Calc Est GFR (MDRD) Af Amer Est GFR (MDRD) Non-Af BUN/Creatinine Ratio Glucose Calcium Total Bilirubin 2.50 H Direct Bilirubin 0.60 H AST 14 L ALT 14 L Alkaline Phosphatase 60 Troponin I High Sens B-Natriuretic Peptide Total Protein 6.8 Albumin 3.1 L Globulin 3.7 TSH Radiography Diagnostic Testing: Clinical Impression(s) from Imaging Studies Chest X-Ray 01/06/22 09:39 IMPRESSION: No acute abnormality is seen. Electronically Signed: Byron John MD at 9:52 EDT , EKG Atrial fibrillation: Attestation: I personally reviewed and interpreted this EKG as follows: Comments: Rate supraventricular tachycardia however I believe that is atrial fibrillation with a rate of 166 bpm, QRS duration was 82 ms, is no ST elevation, no acute infarct noted. Treatment and Re-Evaluation Narrative: Patient arrives in no distress, patient's heart rate is ranging from 1 50-1 70 and atrial fibrillation, patient presents the [place] apartment palpitations, diaphoresis. Patient did receive a full cardiac work-up, patient's chest x-ray inter by ER physician shows no acute abnormality. Patient's laboratory values show hemoconcentration of hemoglobin 18.2, patient's baseline is 15.8. Patient's white blood count was slightly elevated 11.9, patient's chemistries show elevated blood glucose at 227, patient's total bilirubin is slightly elevated 2.5, patient does drink 2-3 alcoholic drinks a day, patient's troponin was negative, patient's TSH was within normal limits. Patient did receive 20 mg of IV Cardizem, this did decrease his heart rate from 170s to 115-120. However after 25 minutes, the patient's heart rate remained in the 140s, patient was started on a Cardizem drip, will be admitted to the hospital. Patient has no history of diabetes. Patient did have a large breakfast. Patient will need to be admitted to the hospital I did speak with Dr. Raymundo, he did speak with cardiology, patient received 10 more milligrams of Cardizem bolus, 60 mg Cardizem by mouth as well as metoprolol fast acting 50 mg. Patient will not be placed on a Cardizem drip, no anticoagulation will be done in the ER. Patient will be stable for admission. <Dr. Jemal Price, DO - Last Filed: 01/06/22 12:00> [facility] Narrative Medical decision making narrative: This patient was seen with a PA/SEMI CONDUCTOR ASSEMBLER Individually assessed they patient including history and physical. I have reviewed everything on the chart that is available and agree with the documentation provided by the PA/SEMI CONDUCTOR ASSEMBLER including discussion about the assessment, treatment plan, discussion, and return precautions. Patient complaining of palpitations which has had in the past and after wearing a Holter monitor was told he did not have any rhythm abnormalities. Today he is found to be in atrial fibrillation on EKG with a ventricular rate of 166 bpm on my interpretation. He was sent here for palpitations. He is not having chest pain. Patient given initial dose of Cardizem 20 mg IV and his heart rate initially responded however he became more tachycardic. Patient CBC shows a mild leukocytosis of 11.9. Hemoglobin is concentrated at 8.2. Platelets are normal at 158. Renal function electrolytes within normal limits. TSH is normal. Total bilirubin is elevated at 2.50 and his direct bilirubin is 0.6. Patient does report that he is an everyday drinker at night. High-sensitivity troponin is 12. Chest x-ray my interpretation shows no acute cardiopulmonary process and the radiologist agree. Initially the plan was to place the patient on a Cardizem drip but after speaking with the hospitalist who spoke with cardiology they recommended 10 more milligrams of Cardizem bolus, 60 mg p.o. Cardizem, and metoprolol 50 for the patient. Patient will still be admitted to the hospitalist. Impression: 1. New onset atrial fibrillation with RVR 2. Elevated bilirubin 3. Hyperglycemia Lab Data Attestation: I reviewed the patient's lab results. Labs: Laboratory Results - last 24 hr 01/06/22 01/06/22 01/06/22 09:15 09:15 09:15 WBC 11.9 H RBC 5.69 Hgb 18.2 H* Hct 53.6 MCV 94.2 H MCH 32.0 MCHC 34.0 RDW Std Deviation 46.0 H RDW Coeff of Denilson 13.2 Plt Count 158 MPV 10.1 Immature Gran % (Auto) 0.800 Neut % (Auto) 84.2 H Lymph % (Auto) 6.0 L Piatt % (Auto) 8.4 Eos % (Auto) 0.4 Baso % (Auto) 0.2 Absolute Neuts (auto) 10.0 H Absolute Lymphs (auto) 0.71 L Nucleated RBC % 0 Sodium 135 L Potassium 3.5 Chloride 102 Carbon Dioxide 27.0 Anion Gap 6 BUN 16 Creatinine 1.15 Estim Creat Clear Calc 56.38 Est GFR (MDRD) Af Amer 79 Est GFR (MDRD) Non-Af 65 BUN/Creatinine Ratio 13.9 Glucose 227 H Calcium 8.9 Total Bilirubin Direct Bilirubin AST ALT Alkaline Phosphatase Troponin I High Sens 12 B-Natriuretic Peptide 43.6 Total Protein Albumin Globulin TSH 2.12 01/06/22 09:15 WBC RBC Hgb Hct MCV MCH MCHC RDW Std Deviation RDW Coeff of Denilson Plt Count MPV Immature Gran % (Auto) Neut % (Auto) Lymph % (Auto) Piatt % (Auto) Eos % (Auto) Baso % (Auto) Absolute Neuts (auto) Absolute Lymphs (auto) Nucleated RBC % Sodium Potassium Chloride Carbon Dioxide Anion Gap BUN Creatinine Estim Creat Clear Calc Est GFR (MDRD) Af Amer Est GFR (MDRD) Non-Af BUN/Creatinine Ratio Glucose Calcium Total Bilirubin 2.50 H Direct Bilirubin 0.60 H AST 14 L ALT 14 L Alkaline Phosphatase 60 Troponin I High Sens B-Natriuretic Peptide Total Protein 6.8 Albumin 3.1 L Globulin 3.7 TSH Radiography Diagnostic Testing: Clinical Impression(s) from Imaging Studies Chest X-Ray 01/06/22 09:39 IMPRESSION: No acute abnormality is seen. Electronically Signed: Byron John MD at 9:52 EDT , Discharge Plan Dx/Rx/DC Orders Clinical Impression: Atrial fibrillation, new onset, Heart palpitations, Polycythemia, Acute hyperglycemia Disposition Disposition: Acute Care Hospital [facility]
[2022-01-06] MEDS: dilTIAZem 25 MG/5 ML Vial 20 MG IV BOLUS (09:27)
--- NOTE | 2022-01-06 09:39 | RAD_ITS ---
STUDY: X-RAY CHEST REASON FOR EXAM: Male, 76 years old. Chest pain and palpitations. TECHNIQUE: Single AP portable view of the chest. COMPARISON: None. FINDINGS: EKG electrodes are seen. The lungs are clear and expanded. There is no demonstrated pleural abnormality. Normal size heart. Normal mediastinum and grady. Normal visualized pulmonary arteries. Normal visualized aortic arch and descending thoracic aorta. There are diffuse degenerative changes of the visualized thoracic spine. Normal visualized ribs, clavicles, and shoulders. There is no demonstrated abnormality of the visualized soft tissue structures of the upper abdomen. RAD/Chest 1 View (Portable) IMPRESSION: No acute abnormality is seen. Electronically Signed: Byron John MD at 9:52 EDT ,
[2022-01-06 09:42] LABS: Absolute Lymphocyte Count 0.71 X10^3/uL (0.83-4.51); Basophil# 0.02 X10^3/uL; Basophil% 0.2 % (0-1); Eosinophil# 0.05 X10^3/uL; Eosinophils% 0.4 % (0-5); Hematocrit 53.6 % (40-54); Lymphocyte # 0.71 X10^3/ul (0.83-4.51); Mean Corpuscular Volume 94.2 fL (80-94); Mean Platelet Vol. 10.1 fl (6.2-12.0); Monocyte% 8.4 % (0-10); NRBC Flagged by Analyzer 0 % (0-5); Neutrophil # 10.02 X10^3/uL (2.7-7.7); Neutrophil % 84.2 % (47-70); Platelet Count 158 K/mm3 (150-450); RBC Distribution Width CV 13.2 % (11.6-14.6); Red Blood Count 5.69 M/mm3 (4.6-6.2); White Blood Count 11.9 K/mm3 (4.4-11.0)
[2022-01-06 10:00] LABS: Anion Gap 6 (5-15); BUN 16 mg/dL (7-18); BUN/Creat Ratio 13.9 RATIO (10-20); Calcium,Total 8.9 mg/dL (8.5-10.1); Chloride 102 mmol/L (98-107); Creatinine, Serum 1.15 mg/dL (0.70-1.30); EST Glomerular Filtration Rate 65 mL/min (>60); Est Glom Filt Rate - Afr Amer 79 mL/min (>60); Estimated Creatinine Clearance 56.38 ml/min; Glucose 227 mg/dL (74-106); Hemoglobin 18.2 g/dL (13.0-16.5); Potassium 3.5 mmol/L (3.5-5.1); Sodium Level 135 mmol/L (136-145); Thyroid Stim Hormone (TSH) 2.12 uIU/mL (0.358-3.74); Troponin-I HS (w/2H Reflex) 12 pg/mL (3.0-78.0)
[2022-01-06 10:03] LABS: AST(SGOT) 14 U/L (15-37); Alanine Aminotransfer ALT/SGPT 14 U/L (16-61); Albumin, Serum 3.1 g/dL (3.2-5.0); Alkaline Phosphatase 60 U/L (45-117); Globulin 3.7 g/dL (2.2-4.2); Protein, Total 6.8 g/dL (6.4-8.2)
[2022-01-06 10:20] LABS: BNP,B-Type NATRIURETIC PEPTIDE 43.6 pg/mL (0-100)
[2022-01-06] MEDS: Metoprolol Tartrate 50 MG Tablet PO (11:05)
[2022-01-06] MEDS: dilTIAZem 60 MG Tablet PO ×3 (11:06→23:31)
[2022-01-06] MEDS: dilTIAZem 25 MG/5 ML Vial 10 MG IV BOLUS (11:06)
--- NOTE | 2022-01-06 11:15 | US_ITS ---
STUDY: ABDOMINAL ULTRASOUND - RIGHT UPPER QUADRANT REASON FOR VISIT: Male, 76 years old ELEVATED BILIRUBIN TECHNIQUE: Ultrasound evaluation of the right upper quadrant was performed with real-time and static barger-scale imaging. TECHNICAL QUALITY: Adequate. COMPARISON: None. FINDINGS: Liver: The liver is enlarged and measures 20.3 cm. There is increased echogenicity consistent with fatty infiltration. The bile ducts are within normal limits. There is hepatic color flow. The direction of portal flow is hepatopetal. There is a 1.9 cm x 2.8 cm x 1.7 cm cyst in the right lobe of the liver. Gallbladder: Normal distended gallbladder. The gallbladder wall measures 2.9 mm. There is a negative sonographic Jaramillo''s sign. There is no pericholecystic fluid. There are no gallstones. Common Bile Duct (C.B.D.): The common bile duct measures 2.4 mm. Pancreas: There is nonvisualization of the pancreas due to overlying bowel gas. Right Kidney: Normal size of the right kidney. The right kidney measures 12.1 cm x 6.1 cm x 6.4 cm. Normal renal cortex. The right cortex measures 1.8 cm. There is no demonstrated renal mass or cyst. There is no right hydronephrosis. US/Gallbladder IMPRESSION: Hepatomegaly. Fatty infiltration of the liver. 1.9 cm x 2.8 cm x 1.7 cm cyst in the right lobe of the liver. The pancreas was not visualized due to overlying bowel gas. Electronically Signed: Byron John MD at 15:23 EDT ,
--- NOTE | 2022-01-06 11:15 | ECHOD_ITS ---
Reason For Study: Afib/Flutter Procedure This was a 2D Doppler, Color Flow transthoracic echocardiogram. The study was technically difficult. Contrast injection was performed. Exam performed portable in patient room. Left Ventricle Normal LV size. The estimated ejection fraction is 60 %. No evidence for diastolic dysfunction. No regional wall motion abnormalities noted. Right Ventricle Normal RV size. Normal systolic function. Atria Normal left atrium. Normal right atrium. No doppler evidence for ASD. Mitral Valve There is moderate mitral annular calcification. There is no mitral valve stenosis. No mitral valve insufficiency. Tricuspid Valve There is no tricuspid stenosis. Trivial tricuspid valve insufficiency. Unable to estimate RV systolic pressure due to insufficient tricuspid regurgitant envelope. Aortic Valve Trisinus/trileaflet aortic valve. There is no aortic stenosis. No aortic valve insufficiency. Pulmonic Valve There is no pulmonic valvular stenosis. No pulmonic valve insufficiency. Great Vessels Normal aortic root. Pericardium/Pleural No pericardial effusion. Medication Diluted definity 1.5ml given slow IV push to enhance endocardial definition. MMode/2D Measurements & Calculations LVIDd: 5.1 cm IVSd: 1.0 cm Ao root diam: 3.6 cm LVIDs: 3.6 cm LVPWd: 1.0 cm LA dimension: 4.7 cm FS: 30.3 % LAV(MOD-bp): 68.1 ml LA A4 area: 22.6 cm2 RA A4 area: 17.4 cm2 LAV(MOD-bp) Indexed: 29.4 ml/m2 LAV(MOD-sp2): 66.1 ml LAV(MOD-sp4): 66.9 ml Doppler Measurements & Calculations MV E max valarie: 103.8 cm/sec Ao V2 max: 96.7 cm/sec LV V1 max: 83.3 cm/sec Ao max P.8 mmHg LV V1 max P.8 mmHg PA V2 max: 67.1 cm/sec TR max valarie: 218.2 cm/sec TR max P.1 mmHg ECHO/Echo Complete W/ Contrast Interpretation Summary The estimated ejection fraction is 60 %. No evidence for diastolic dysfunction. Ordering Physician: Bird Conway Referring Physician: Kendrick Johnson Chi Performed By: Des Morillo RCS
[2022-01-06 11:28] LABS: Reflex Troponin-HS? (from REC) Y
[2022-01-06] MEDS: 0.9% Normal Saline 1,000 ML 999 ML IV (11:34)
[2022-01-06] MEDS: Enoxaparin 120 MG/0.8 ML Syringe SC ×2 (13:04→21:25)
[2022-01-06] MEDS: Metoprolol(XL)Succ 50 MG Tablet PO (13:04)
--- NOTE | 2022-01-06 13:11 | PCM.HP.STD ---
Documented by User: Sherry Lott NP, HEALTH DATA ANALYST-C 01/06/22 13:54 HPI - General General Date of Admission: 01/06/22 Date of Service: 01/06/22 Chief Complaint: Palpitations. HPI Narrative BERNIE HEART, is a 76 M who presents to the emergency room due to palpitations and diaphoresis. Patient reports his symptoms began last night during his sleep. Denies chest pain, shortness of breath. He denies dizziness, lightheadedness. States he has had intermittent palpitations in the past however not to this extent. Patient reports palpitations and diaphoresis began this morning and he noticed his heart rate was high and came to the emergency room. He states he follows cardiology and has worn a Holter monitor in the past without A. fib findings. He denies history of underlying heart disease. He has a past medical history of hypertension, squamous cell cancer/melanoma, obesity, AKOSUA. [facility] Medical History (Updated 01/06/22 @ 12:56 by Kezia Van) Benign neoplasm of colon Essential (primary) hypertension IBS (irritable bowel syndrome) Lichenoid keratosis Melanoma Obesity Obstructive sleep apnea Home Medications hydrochlorothiazide 25 mg tablet 25 mg PO DAILY 11/12/18 [History Last Taken Unknown] losartan 50 mg tablet (Cozaar) 50 mg PO DAILY 11/12/18 [History Last Taken Unknown] multivitamin 1 tab PO DAILY 11/12/18 [History Last Taken Unknown] metoprolol succinate 100 mg tablet,extended release 24 hr (Toprol XL) 100 mg PO DAILY #90 tabs 06/21/21 [Rx Last Taken Unknown] doxycycline hyclate 100 mg capsule 100 mg PO DAILY 01/06/22 [History Last Taken Unknown] potassium chloride 10 mEq tablet,extended release(part/cryst) (Klor-Con M) 10 meq PO DAILY 01/06/22 [History Last Taken Unknown] Allergy/AdvReac Type Severity Reaction Status Date / Time LUC Inhibitors AdvReac cough Verified 01/06/22 08:57 Family History Father Cancer Hypertension Heart disease afib Mother No problems noted. Surgical History H/O colonoscopy with polypectomy History of appendectomy History of tonsillectomy History of vasectomy Social History (Updated 01/06/22 @ 13:49 by Sherry Lott NP, HEALTH DATA ANALYST-C) household members: spouse Smoking Status: Never smoker alcohol intake: current alcohol intake frequency: 0-2 drinks per day substance use type: does not use ROS Constitutional Constitutional: Denies change in weight, chills, fatigue, fever(s) or weakness Cardiovascular Cardiovascular: Reports palpitations; Denies chest pain, edema, lightheadedness or syncope Respiratory/Chest Respiratory/Chest: Denies cough, dyspnea, productive cough, shortness of breath at rest, shortness of breath with exertion or wheezing Gastrointestinal Gastrointestinal: Denies abdominal pain, constipation, diarrhea, nausea or vomiting Genitourinary Genitourinary: Denies burning urination, difficulty urinating, dysuria, hematuria, urinary frequency, urinary incontinence or urinary urgency Musculoskeletal Musculoskeletal: Denies back pain, joint pain or muscle weakness Integumentary Integumentary: Denies erythema, lesions, rash or wounds Neurologic Neurologic: Denies abnormal speech, confusion, dizziness, focal weakness, numbness, paresthesias, seizure-like activity or syncope Psychiatric Psychiatric: Denies anxiety or depression Hematologic/Lymphatic Hematologic/Lymphatic: Denies anemia, easy bleeding or easy bruising Allergic/Immunologic Allergic/Immunologic: Denies hives or asthma Vital Signs Vital Signs Vital Signs: 01/06/22 08:58 01/06/22 09:07 01/06/22 09:07 Temperature 96.5 F L Temperature Source Temporal Pulse Rate 88 151 H Respiratory Rate 20 H 20 H Respiratory Effort Normal Non-Labored Blood Pressure 156/121 H Blood Pressure Mean 132 Blood Pressure Source Blood Pressure Position Blood Pressure Location Pulse Ox 94 96 Oxygen Delivery Method Room Air Room Air 01/06/22 09:26 01/06/22 09:39 01/06/22 10:53 Temperature Temperature Source Pulse Rate 124 H 134 H Respiratory Rate 18 20 H Respiratory Effort Blood Pressure 109/64 125/114 H Blood Pressure Mean 79 117 Blood Pressure Source Blood Pressure Position Blood Pressure Location Pulse Ox 95 94 94 Oxygen Delivery Method Room Air Room Air Room Air 01/06/22 11:00 01/06/22 11:05 01/06/22 11:35 Temperature 97.4 F L 97.4 F L Temperature Source Temporal Oral Pulse Rate 144 H 149 H 108 H Respiratory Rate 17 21 H 16 Respiratory Effort Blood Pressure 97/50 L 113/78 97/67 Blood Pressure Mean 65 89 77 Blood Pressure Source Blood Pressure Position Blood Pressure Location Pulse Ox 95 94 96 Oxygen Delivery Method Room Air Room Air Room Air 01/06/22 12:45 01/06/22 13:04 Temperature 98.8 F Temperature Source Oral Pulse Rate 103 H 103 H Respiratory Rate 16 Respiratory Effort Blood Pressure 111/77 111/77 Blood Pressure Mean 88 Blood Pressure Source Monitor Blood Pressure Position Semi-Fowlers Blood Pressure Location Right Arm Pulse Ox 96 Oxygen Delivery Method Room Air Weight Weight: 254 lb 3.088 oz Body Mass Index (BMI) 35.4 Physical Exam Const alert, oriented x3 and no apparent distress Orientation / Consciousness: awake, oriented to person, oriented to place and oriented to time HEENT normocephalic and moist oral mucous membranes Eyes PERRL, EOMs intact bilaterally and conjunctivae normal Neck no lymphadenopathy Resp normal respiratory effort and clear to auscultation bilaterally Cardio no murmurs Cardio Narrative: A. fib, rate improved Peripheral Pulses: pulses 2+ throughout GI normal to inspection, nondistended, normoactive bowel sounds, non-tender and non-distended Extremity normal to inspection Skin no rashes or lesions noted Lesions: no lesions Rashes: no rashes Trauma: no lacerations or abrasions Neuro CN's II-XII intact bilaterally, no focal motor deficits, no sensory deficits noted and deep tendon reflexes 2+ bilaterally Psych mental status grossly normal and affect normal Results Lab / Micro Data Result Diagrams: 01/06/22 09:15 01/06/22 09:15 Labs: Laboratory Results - last 24 hr 01/06/22 09:15: WBC 11.9 H, RBC 5.69, Hgb 18.2 H*, Hct 53.6, MCV 94.2 H, MCH 32.0, MCHC 34.0, RDW Std Deviation 46.0 H, RDW Coeff of Denilson 13.2, Plt Count 158, MPV 10.1, Immature Gran % (Auto) 0.800, Neut % (Auto) 84.2 H, Lymph % (Auto) 6.0 L, [place] % (Auto) 8.4, Eos % (Auto) 0.4, Baso % (Auto) 0.2, Absolute Neuts (auto) 10.0 H, Absolute Lymphs (auto) 0.71 L, Nucleated RBC % 0 01/06/22 09:15: Sodium 135 L, Potassium 3.5, Chloride 102, Carbon Dioxide 27.0, Anion Gap 6, BUN 16, Creatinine 1.15, Estim Creat Clear Calc 56.38, Est GFR (MDRD) Af Amer 79, Est GFR (MDRD) Non-Af 65, BUN/Creatinine Ratio 13.9, Glucose 227 H, Calcium 8.9, Troponin I High Sens 12, TSH 2.12 01/06/22 09:15: B-Natriuretic Peptide 43.6 01/06/22 09:15: Total Bilirubin 2.50 H, Direct Bilirubin 0.60 H, AST 14 L, ALT 14 L, Alkaline Phosphatase 60, Total Protein 6.8, Albumin 3.1 L, Globulin 3.7 Radiology Impression Chest X-Ray 01/06/22 09:39 IMPRESSION: No acute abnormality is seen. Electronically Signed: Byron Jhon MD at 9:52 EDT , Assessment & Plan Assessment/Plan (1) Atrial fibrillation, new onset: PLAN: Plan 1. New onset atrial fibrillation-initially placed on Cardizem drip with bolus. Begin oral Cardizem 60 mg p.o. every 6 hours. Increase home metoprolol to 200 mg daily. Therapeutic Lovenox. Cardiology consulted. Troponin negative. Obtain echo. TSH within normal limits. Check mag. 2. Hyperbilirubinemia-unclear etiology. Gallbladder ultrasound ordered. Trend labs. 3. Hypertension-stable, continue home regimen including losartan, HCTZ, metoprolol. 4. Obesity- diet and lifestyle modifications encouraged. 5. AKOSUA-continue home CPAP regimen. 6. Hx of squamous cell carcinoma/melanoma-status post excision. 7. Rosacea-on doxycycline. 8. Alcohol use- patient reports two bourbon drinks per night. DVT prophylaxis- Lovenox sc This patient was seen by LIBAN Henley under the supervision of Dr. Conway. Time spent examining patient, reviewing data and subsequent management of care: 25 minutes Documented by User: Dr. Bird Conway DO 01/06/22 17:01 HPI - General General Date of Admission: 01/06/22 [facility] Medical History (Updated 01/06/22 @ 12:56 by Kezia Van) Benign neoplasm of colon Essential (primary) hypertension IBS (irritable bowel syndrome) Lichenoid keratosis Melanoma Obesity Obstructive sleep apnea Home Medications hydrochlorothiazide 25 mg tablet 25 mg PO DAILY 11/12/18 [History Last Taken Unknown] losartan 50 mg tablet (Cozaar) 50 mg PO DAILY 11/12/18 [History Last Taken Unknown] multivitamin 1 tab PO DAILY 11/12/18 [History Last Taken Unknown] metoprolol succinate 100 mg tablet,extended release 24 hr (Toprol XL) 100 mg PO DAILY #90 tabs 06/21/21 [Rx Last Taken Unknown] doxycycline hyclate 100 mg capsule 100 mg PO DAILY 01/06/22 [History Last Taken Unknown] potassium chloride 10 mEq tablet,extended release(part/cryst) (Klor-Con M) 10 meq PO DAILY 01/06/22 [History Last Taken Unknown] Allergy/AdvReac Type Severity Reaction Status Date / Time LUC Inhibitors AdvReac cough Verified 01/06/22 08:57 Family History Father Cancer Hypertension Heart disease afib Mother No problems noted. Surgical History H/O colonoscopy with polypectomy History of appendectomy History of tonsillectomy History of vasectomy Social History (Updated 01/06/22 @ 13:49 by Sherry Lott NP, HEALTH DATA ANALYST-C) household members: spouse Smoking Status: Never smoker alcohol intake: current alcohol intake frequency: 0-2 drinks per day substance use type: does not use Results Lab / Micro Data Result Diagrams: 01/06/22 09:15 01/06/22 09:15 Assessment & Plan Assessment/Plan (1) Atrial fibrillation, new onset: Charges/Coding Addendum Addendum: Patient was seen and examined independently of Sherry Lott, he came to the emergency room today after being evaluated in the cardiology department today at [facility], he was noted to have a rapid heart rate, he was diaphoretic, and sent to the emergency room for evaluation. EKG performed in the emergency room showed the patient be in atrial fibrillation with a rate in the 160s. There was no evidence of ST-T wave elevation, no acute infarction was noted. Patient had a chest x-ray performed which showed no acute abnormality, patient's labs were remarkable for hemoglobin of 18.2, patient's white blood cell count was 11.9, patient's chemistry profile showed an elevated glucose at 227, patient's bilirubin was elevated at 2.5. Patient received 20 mg of IV Cardizem which decreased his heart rate somewhat but after approximately 25 minutes, the heart rate remained in the 140s. Patient was then placed on a Cardizem drip, hospitalist service was contacted for admission. On examination he appeared in good health and spirits. Vital signs as documented. Skin warm and dry and without overt rashes. Neck without JVD, neck was supple, trachea midline, thyroid was normal. Lungs clear bilaterally, normal air movement was noted. Heart exam notable for irregular rhythm, normal sounds and absence of murmurs, rubs or gallops. Abdomen unremarkable and without evidence of organomegaly, masses, or abdominal aortic enlargement. Bowel sounds are present, abdomen is not distended. Extremities nonedematous, no cyanosis was noted, no clubbing was noted. Neuro: Cranial nerves II through XII are grossly intact, no focal motor deficits were noted, sensation to light touch and pinprick intact, motor exam 5/5 throughout. Psych: Patient is alert and oriented x3, he does not appear anxious or depressed, he does not appear agitated. #1 new onset atrial fibrillation with RVR-patient will be admitted to PCU, he will be placed on oral medications for rate control-we will try to keep him off continuous IV medications to control the atrial fib, patient will be placed on subcu Lovenox for anticoagulation, I discussed his care with cardiology and they will see him in consultation. Patient will have an echocardiogram performed, cardiac enzymes will be cycled, and I will order a TSH. #2 elevated bilirubin-etiology unclear, patient will have an ultrasound of the liver and gallbladder performed today, liver profile will be repeated tomorrow #3 essential hypertension-patient will remain on his present home medications #4 increased blood sugar-etiology unclear, patient's labs will be monitored, hemoglobin A1c will be obtained I have reviewed Sherry Lott's history and physical including her medical assessment and plan of care and with the above additions endorse it. Total clinical time spent by myself addressing the patient's medical issues, reviewing the medical data, and collaborating with patient's care team: 55 Visit Charges Inpatient E&M: 67921 Init Hosp L3
[2022-01-06 13:30] LABS: Troponin-I HS 38 pg/mL (3.0-78.0)
--- NOTE | 2022-01-06 13:44 | PCM.CONS.C ---
Assessment & Plan Assessment/Plan (1) Atrial fibrillation, new onset: PLAN: Agree with adding Cardizem 60 mg p.o. every 6 hours. We can go back to metoprolol 100 mg p.o. daily. It will be reasonable to start the patient on anticoagulation with Eliquis. Continue telemetry monitoring. [facility] Consult Data Date of Consult: 01/06/22 HPI Narrative Reason for Consultation: A. fib with RVR HPI Narrative: BERNIE HEART, is a 76 M who presents to the cardiology office initially today with palpitations and diaphoresis. He was found to be in A. fib with RVR and was sent to the emergency room. He was given Cardizem IV and then switched to p.o. Cardizem. His metoprolol dose was increased. His heart rate is under better control now. Patient's symptoms have also resolved. Review of systems: All systems reviewed. All else is negative except that in [facility] Medical History (Updated 01/06/22 @ 12:56 by Kezia Van) Benign neoplasm of colon Essential (primary) hypertension IBS (irritable bowel syndrome) Lichenoid keratosis Melanoma Obesity Obstructive sleep apnea Home Medications hydrochlorothiazide 25 mg tablet 25 mg PO DAILY 11/12/18 [History Last Taken Unknown] losartan 50 mg tablet (Cozaar) 50 mg PO DAILY 11/12/18 [History Last Taken Unknown] multivitamin 1 tab PO DAILY 11/12/18 [History Last Taken Unknown] metoprolol succinate 100 mg tablet,extended release 24 hr (Toprol XL) 100 mg PO DAILY #90 tabs 06/21/21 [Rx Last Taken Unknown] doxycycline hyclate 100 mg capsule 100 mg PO DAILY 01/06/22 [History Last Taken Unknown] potassium chloride 10 mEq tablet,extended release(part/cryst) (Klor-Con M) 10 meq PO DAILY 01/06/22 [History Last Taken Unknown] Allergy/AdvReac Type Severity Reaction Status Date / Time LUC Inhibitors AdvReac cough Verified 01/06/22 08:57 Family History Father Cancer Hypertension Heart disease afib Mother No problems noted. Surgical History H/O colonoscopy with polypectomy History of appendectomy History of tonsillectomy History of vasectomy Social History (Updated 03/23/20 @ 14:[address] Moris Mendes MD) Smoking Status: Never smoker Physical Exam Const alert and oriented x3 HEENT normocephalic Eyes no scleral icterus Resp normal respiratory effort Cardio Cardio Narrative: Irregular rhythm Psych mental status grossly normal Risk Stratification Risk Stratification Applicable: No Charges/Coding Visit Charges Inpatient E&M: 24470 Init Hosp L2 Objective Data Vital Signs: Vital Signs Temp Pulse Resp BP Pulse Ox O2 Del Method 98.8 F 103 H 16 111/77 96 Room Air 01/06/22 12:45 01/06/22 13:04 01/06/22 12:45 01/06/22 13:04 01/06/22 12:45 01/06/22 12:45 Oxygen Delivery Method Room Air Weight: 254 lb 3.088 oz Body Mass Index (BMI) 35.4 Intake & Output: Intake and Output for Last 24 Hours 01/04/22 01/05/22 01/06/22 23:59 23:59 23:59 Intake Total 1500 / 1500 Balance 1500 / 1500 Lab / Micro Data Result Diagrams: 01/06/22 09:15 01/06/22 09:15 Labs: Laboratory Results - last 24 hr 01/06/22 09:15: WBC 11.9 H, RBC 5.69, Hgb 18.2 H*, Hct 53.6, MCV 94.2 H, MCH 32.0, MCHC 34.0, RDW Std Deviation 46.0 H, RDW Coeff of Denilson 13.2, Plt Count 158, MPV 10.1, Immature Gran % (Auto) 0.800, Neut % (Auto) 84.2 H, Lymph % (Auto) 6.0 L, [place] % (Auto) 8.4, Eos % (Auto) 0.4, Baso % (Auto) 0.2, Absolute Neuts (auto) 10.0 H, Absolute Lymphs (auto) 0.71 L, Nucleated RBC % 0 01/06/22 09:15: Sodium 135 L, Potassium 3.5, Chloride 102, Carbon Dioxide 27.0, Anion Gap 6, BUN 16, Creatinine 1.15, Estim Creat Clear Calc 56.38, Est GFR (MDRD) Af Amer 79, Est GFR (MDRD) Non-Af 65, BUN/Creatinine Ratio 13.9, Glucose 227 H, Calcium 8.9, Troponin I High Sens 12, TSH 2.12 01/06/22 09:15: B-Natriuretic Peptide 43.6 01/06/22 09:15: Total Bilirubin 2.50 H, Direct Bilirubin 0.60 H, AST 14 L, ALT 14 L, Alkaline Phosphatase 60, Total Protein 6.8, Albumin 3.1 L, Globulin 3.7 01/06/22 12:54: Troponin I High Sens 38 Cardiology Labs/Tests 01/06/22 09:15: WBC 11.9 H, RBC 5.69, Hgb 18.2 H*, Hct 53.6, MCV 94.2 H, MCH 32.0, MCHC 34.0, Plt Count 158, MPV 10.1, Immature Gran % (Auto) 0.800, Neut % (Auto) 84.2 H, Lymph % (Auto) 6.0 L, [place] % (Auto) 8.4, Eos % (Auto) 0.4, Baso % (Auto) 0.2, Absolute Neuts (auto) 10.0 H, Nucleated RBC % 0 01/06/22 09:15: Sodium 135 L, Potassium 3.5, Chloride 102, Carbon Dioxide 27.0, Anion Gap 6, BUN 16, Creatinine 1.15, Est GFR (MDRD) Af Amer 79, Est GFR (MDRD) Non-Af 65, BUN/Creatinine Ratio 13.9, Glucose 227 H, Calcium 8.9 01/06/22 09:15: B-Natriuretic Peptide 43.6 01/06/22 09:15: Total Bilirubin 2.50 H, Direct Bilirubin 0.60 H Rhythm: EKG: ECHO: Stress Test: Cardiac Cath: PCI: CT Surgery: Holter monitor: EPS: PPM: CXR: Chest CT Scan: Radiography Diagnostic Testing: Radiology Impression Chest X-Ray 01/06/22 09:39 IMPRESSION: No acute abnormality is seen. Electronically Signed: Byron John MD at 9:52 EDT ,
[2022-01-06 15:52] LABS: Magnesium 2.3 mg/dL (1.6-2.6); Troponin-I HS 38 pg/mL (3.0-78.0)
[2022-01-06 16:25] LABS: Hemoglobin A1c 5.7 % (3.8-5.6)
[2022-01-07 03:00] VITALS: PULSE 90
[2022-01-07 05:00] VITALS: PULSE 110
[2022-01-07 05:55] LABS: Hemoglobin 15.5 g/dL (13.0-16.5)
[2022-01-07 06:19] LABS: AST(SGOT) 14 U/L (15-37); Alanine Aminotransfer ALT/SGPT 13 U/L (16-61); Albumin, Serum 2.5 g/dL (3.2-5.0); Alkaline Phosphatase 45 U/L (45-117); Bilirubin, Direct 0.49 mg/dL (0.00-0.30); Globulin 3.3 g/dL (2.2-4.2); Protein, Total 5.8 g/dL (6.4-8.2)
[2022-01-07] MEDS: dilTIAZem 60 MG Tablet PO ×2 (06:30→12:02)
[2022-01-07 06:48] VITALS: PULSE 94
[2022-01-07 08:03] VITALS: BP 115/72; PULSE 100; RESP 18; TEMP 36.9; O2SAT 95
[2022-01-07 08:09] VITALS: BP 115/72; PULSE 100
[2022-01-07] MEDS: Losartan Potassium 50 MG Tablet PO (08:09)
[2022-01-07] MEDS: Enoxaparin 120 MG/0.8 ML Syringe SC (08:09)
[2022-01-07] MEDS: hydroCHLOROthiazide 25 MG Tablet PO (08:09)
[2022-01-07] MEDS: Doxycycline 100 MG CAPSULE PO (08:09)
[2022-01-07] MEDS: Metoprolol(XL)Succ 100 MG Tablet PO (08:09)
--- NOTE | 2022-01-07 11:33 | DCINST_ITS ---
Discharge Instructions Diet Discharge Diet: Low fat / Low cholesterol Activity Discharge Activity: Return to Normal Activity Dressing / Incision Call your doctor if you observe: Shortness of breath, Dizziness, Chest pain and Increased palpitations (irregular heartbeat) Follow Up Care Test Results: Test results from this visit will be discussed in further detail at your follow- up appointment, if applicable. Discharge Plan Admission Admit Date/Time: 01/06/22 11:17 Primary Reason for Your Visit: A.lashawn Attending Provider: Mya Tello Primary Care Provider: Kendrick Johnson Chi Consulting Providers: Elian Canada ; Bird Conway Discharge Orders/Prescriptions Prescriptions: New Eliquis 5 mg tablet 5 mg PO BID Qty: 60 0RF diltiazem HCl [Cardizem CD] 240 mg capsule,extended release 24hr 240 mg PO DAILY Qty: 30 0RF Continued losartan [Cozaar] 50 mg tablet 50 mg PO DAILY hydrochlorothiazide 25 mg tablet 25 mg PO DAILY multivitamin tablet 1 tab PO DAILY doxycycline hyclate 100 mg capsule 100 mg PO DAILY Label Comments: TAKE 1 TO 2 CAPSULES BY MOUTH DAILY potassium chloride [Klor-Con M10] 10 mEq tablet,ER particles/crystals 10 meq PO DAILY Label Comments: TAKE 1 TABLET ORALLY ONCE PER DAY FOR 90 DAYS metoprolol succinate [Toprol XL] 100 mg tablet extended release 24 hr 100 mg PO DAILY Qty: 90 3RF Referrals / Follow Up: Moris Mendes MD [Med Staff - Active Staff] - Within 2 Weeks (May see [employer] SUPERVISOR/PA) Kendrick Johnson Chi, MD [Primary Care Provider] - In 1 Week Disposition Disposition (needs filled in before D/C Order can be placed): Home, Self Care
--- NOTE | 2022-01-07 11:40 | DS.PCM_ITS ---
Documented by User: Sherry Lott NP, TAB CARD PRESS OPERATOR-C 01/07/22 11:55 Providers Date of Admission: 01/06/22 Date of Discharge: 01/07/22 Primary Care Physician: Dr. Kendrick Johnson MD Consultations 01/06/22 12:35 Consult: Cardiology Routine Consulting Provider: Elian Canada Reason for Consult: A-FIB EMERGENT Consult: No MD Notified: Yes Date Notified: 01/06/22 Time Notified: 11:05 Method of Notification: Verbal Reason For Visit: palpitations Diagnosis Discharge Diagnosis (1) Atrial fibrillation, new onset: Status: Acute Code(s): I48.91 - Unspecified atrial fibrillation Medications at Discharge Home Medications hydrochlorothiazide 25 mg tablet 25 mg PO DAILY 11/12/18 losartan 50 mg tablet (Cozaar) 50 mg PO DAILY 11/12/18 multivitamin 1 tab PO DAILY 11/12/18 metoprolol succinate 100 mg tablet,extended release 24 hr (Toprol XL) 100 mg PO DAILY #90 tabs 06/21/21 doxycycline hyclate 100 mg capsule 100 mg PO DAILY 01/06/22 potassium chloride 10 mEq tablet,extended release(part/cryst) (Klor-Con M) 10 m eq PO DAILY 01/06/22 apixaban 5 mg tablet (Eliquis) 5 mg PO BID #60 tabs 01/07/22 diltiazem HCl 240 mg capsule,extended release 24 hr (Cardizem CD) 240 mg PO DAILY #30 caps 01/07/22 Hospital Course Operations None Procedures 2-D Echocardiogram Summary of Care Provided Hospital Course: Patient is a 76-year-old male admitted 01/06/2022 due to palpitations. 1.? New onset atrial fibrillation-initially placed on Cardizem drip with bolus.? Cardiology consulted. Transition to oral Cardizem 240 mg daily at discharge. Continue home metoprolol 100 mg daily. Initiated on Eliquis 5 mg twice daily. Echocardiogram with EF 60%, stage I diastolic dysfunction. Troponin, TSH and mag unremarkable. Rate controlled. Follow-up with PCP in 1 week. Follow-up with cardiology in 2 weeks. 2. Hyperbilirubinemia-unclear etiology.? Gallbladder ultrasound demonstrates hepatomegaly, fatty liver, right lobe liver cyst.? Bilirubin trending down. Recommend follow-up with PCP and consider GI referral. 3. Hypertension-stable, continue home regimen including losartan, HCTZ, metoprolol. 4. Obesity- diet and lifestyle modifications encouraged. 5. AKOSUA-continue home CPAP regimen. 6. Hx of squamous cell carcinoma/melanoma-status post excision. 7.?Rosacea-on doxycycline. 8. Alcohol use- patient reports two bourbon drinks per night. Encouraged reduction in alcohol intake. 9. Prediabetes-hemoglobin A1c 5.7%. Recommend carb controlled diet and PCP follow-up for surveillance. Physical Exam Const alert, oriented x3 and no apparent distress Orientation / Consciousness: awake, oriented to person, oriented to place and oriented to time HEENT normocephalic and moist oral mucous membranes Eyes PERRL, EOMs intact bilaterally and conjunctivae normal Neck no lymphadenopathy Resp normal respiratory effort and clear to auscultation bilaterally Cardio no murmurs Cardio Narrative: A. fib, rate controlled Peripheral Pulses: pulses 2+ throughout GI normal to inspection, nondistended, normoactive bowel sounds, non-tender and non-distended Extremity normal to inspection Skin no rashes or lesions noted Lesions: no lesions Rashes: no rashes Trauma: no lacerations or abrasions Neuro CN's II-XII intact bilaterally, no focal motor deficits, no sensory deficits noted and deep tendon reflexes 2+ bilaterally Psych mental status grossly normal and affect normal Patient seen and examined prior to discharge. Physical assessment as noted above. Patient is stable for discharge with follow up recommendations as noted above. This patient was seen by LIBAN Henley under the supervision of Dr. Tello. Time spent examining patient, reviewing data and subsequent management of care: 23 minutes Weight / BMI Weight Weight: 254 lb 3.088 oz Body Mass Index (BMI) 35.4 ABG / Lab / Microbiology Data Result Diagrams: 01/07/22 05:26 01/06/22 09:15 Laboratory: Laboratory Results - last 24 hr 01/06/22 09:15: Diff Path Review September01/06/22 12:54: Troponin I High Sens 38 01/06/22 15:10: Magnesium 2.3, Troponin I High Sens 38 01/06/22 15:10: Hemoglobin A1c 5.7 H 01/07/22 05:26: Hgb 15.5 01/07/22 05:26: Total Bilirubin 2.00 H, Direct Bilirubin 0.49 H, AST 14 L, ALT 13 L, Alkaline Phosphatase 45, Total Protein 5.8 L, Albumin 2.5 L, Globulin 3.3 Radiography Diagnostic Testing: Radiology Impression Gallbladder Ultrasound 01/06/22 11:15 IMPRESSION: Hepatomegaly. Fatty infiltration of the liver. 1.9 cm x 2.8 cm x 1.7 cm cyst in the right lobe of the liver. The pancreas was not visualized due to overlying bowel gas. Electronically Signed: Byron John MD at 15:23 EDT , D/C Instructions Discharge Diet: Low fat / Low cholesterol Call your doctor if you observe: Shortness of breath, Dizziness, Chest pain and Increased palpitations (irregular heartbeat) Meaningful Use Info Meaningful Use Diagnoses (Choose all that apply): None applicable Discharge Plan Admission Admit Date/Time: 01/06/22 11:17 Primary Reason for Your Visit: Chalo Attending Provider: Mya Tello Primary Care Provider: Kendrick Johnson Chi Consulting Providers: Elian Canada ; Bird Conway Discharge Orders/Prescriptions Prescriptions: New Eliquis 5 mg tablet 5 mg PO BID Qty: 60 0RF diltiazem HCl [Cardizem CD] 240 mg capsule,extended release 24hr 240 mg PO DAILY Qty: 30 0RF Continued losartan [Cozaar] 50 mg tablet 50 mg PO DAILY hydrochlorothiazide 25 mg tablet 25 mg PO DAILY multivitamin tablet 1 tab PO DAILY doxycycline hyclate 100 mg capsule 100 mg PO DAILY Label Comments: TAKE 1 TO 2 CAPSULES BY MOUTH DAILY potassium chloride [Klor-Con M10] 10 mEq tablet,ER particles/crystals 10 meq PO DAILY Label Comments: TAKE 1 TABLET ORALLY ONCE PER DAY FOR 90 DAYS metoprolol succinate [Toprol XL] 100 mg tablet extended release 24 hr 100 mg PO DAILY Qty: 90 3RF Referrals / Follow Up: Moris Mendes MD [Med Staff - Active Staff] - Within 2 Weeks (May see TAB CARD PRESS OPERATOR/PA) Kendrick Johnson Chi, MD [Primary Care Provider] - In 1 Week Disposition Disposition (needs filled in before D/C Order can be placed): Home, Self Care Documented by User: Dr. Mya Tello MD 01/07/22 13:38 Providers Date of Admission: 01/06/22 Reason For Visit: palpitations Diagnosis Discharge Diagnosis (1) Atrial fibrillation, new onset: Status: Acute Code(s): I48.91 - Unspecified atrial fibrillation Medications at Discharge Home Medications hydrochlorothiazide 25 mg tablet 25 mg PO DAILY 11/12/18 losartan 50 mg tablet (Cozaar) 50 mg PO DAILY 11/12/18 multivitamin 1 tab PO DAILY 11/12/18 metoprolol succinate 100 mg tablet,extended release 24 hr (Toprol XL) 100 mg PO DAILY #90 tabs 06/21/21 doxycycline hyclate 100 mg capsule 100 mg PO DAILY 01/06/22 potassium chloride 10 mEq tablet,extended release(part/cryst) (Klor-Con M) 10 m eq PO DAILY 01/06/22 apixaban 5 mg tablet (Eliquis) 5 mg PO BID #60 tabs 01/07/22 diltiazem HCl 240 mg capsule,extended release 24 hr (Cardizem CD) 240 mg PO DAILY #30 caps 01/07/22 ABG / Lab / Microbiology Data Result Diagrams: 01/07/22 05:26 01/06/22 09:15 Discharge Plan Admission Admit Date/Time: 01/06/22 11:17 Primary Reason for Your Visit: A.lashawn Attending Provider: Mya Tello Primary Care Provider: Kendrick Johnson Chi Consulting Providers: Elian Canada ; Bird Conway Discharge Orders/Prescriptions Prescriptions: New Eliquis 5 mg tablet 5 mg PO BID Qty: 60 0RF diltiazem HCl [Cardizem CD] 240 mg capsule,extended release 24hr 240 mg PO DAILY Qty: 30 0RF Continued losartan [Cozaar] 50 mg tablet 50 mg PO DAILY hydrochlorothiazide 25 mg tablet 25 mg PO DAILY multivitamin tablet 1 tab PO DAILY doxycycline hyclate 100 mg capsule 100 mg PO DAILY Label Comments: TAKE 1 TO 2 CAPSULES BY MOUTH DAILY potassium chloride [Klor-Con M10] 10 mEq tablet,ER particles/crystals 10 meq PO DAILY Label Comments: TAKE 1 TABLET ORALLY ONCE PER DAY FOR 90 DAYS metoprolol succinate [Toprol XL] 100 mg tablet extended release 24 hr 100 mg PO DAILY Qty: 90 3RF Referrals / Follow Up: Moris Mendes MD [Med Staff - Active Staff] - Within 2 Weeks (May see TAB CARD PRESS OPERATOR/PA) Kendrick Johnson Chi, MD [Primary Care Provider] - In 1 Week Disposition Disposition (needs filled in before D/C Order can be placed): Home, Self Care Charges/Coding Addendum Addendum: Patient seen by Sherry WILBURNC under my supervision Patient is a 76-year-old male with a past medical history as outlined was admitted to the ED on 01/06/2022 with a complaint of palpitations and increased sweating. His symptoms are started the night before his admission while she was sleeping. He denied any associated chest pain or shortness of breath, dizziness or lightheadedness. He had not seen cardiology and had been fitted with a Holter monitor in the past but showed no significant findings. He was found to be in A. fib and started on Cardizem drip with bolus. He was switched to p.o. Cardizem and subsequently put on metoprolol and anticoagulated with therapeutic Lovenox. 2D echo done showed EF of 60% with stage I diastolic dysfunction. Troponins and TSH were within normal limits. His rate control improved and he was started on Eliquis for anticoagulation. Hospital course was complicated by hyperbilirubinemia etiology of which was unclear. Gallbladder ultrasound showed hepatomegaly with fatty liver and right liver lobe cyst. Bilirubin subsequently started trending downwards. Patient remained stable and was discharged home on 01/07/2022 on p.o. metoprolol and p.o. Cardizem as well as p.o. Eliquis. He is to follow-up with his primary care doctor within 1 to 2 weeks and also to follow-up with cardiology. Patient seen and examined prior to discharge. He had no active complaints and had an uneventful night. Review of systems otherwise negative. Labs and vitals reviewed. Home medication reviewed and reconciled. O/E: Const alert, oriented x3 and no apparent distress General Appearance: cooperative HEENT normocephalic, head/scalp atraumatic, hearing grossly normal bilaterally and moist oral mucous membranes Eyes PERRL, EOMs intact bilaterally and conjunctivae normal Neck no lymphadenopathy, supple and no JVD Resp normal respiratory effort and clear to auscultation bilaterally Cardio regular rate, regular rhythm, S1 normal heart sound, S2 normal heart sound and no murmurs GI normal to inspection, nondistended, normoactive bowel sounds and soft to palpation Extremity normal to inspection, full ROM and no clubbing, cyanosis or edema Skin no rashes or lesions noted Neuro oriented x3, CN's II-XII intact bilaterally and moves all extremities Sensorium / Orientation: awake and alert Psych affect normal Plan is for discharge home today. Rest as per AKILA HenleyC's notes which I reviewed and endorsed. Total time i spent on the care of the patient today: 27 mins, with Sherry Lott spending 23 mins, making a total of 50 mins Visit Charges Inpatient E&M: 13324 Disch Hosp
[2022-01-07 11:58] VITALS: BP 107/58; PULSE 93; RESP 16; TEMP 36.9; O2SAT 97
--- NOTE | 2022-01-07 13:30 | CASEMGMT ---
KATHLEEN HAILE assessment: Face to Face with patient for initial transition planning/care coordination assessment. KATHLEEN HAILE introduced self and role at [facility], pt voices understanding and consents to assessment. Pt is sitting up in chair in no distress on room air. Pt is A/Ox4 and answers all questions appropriately. Pt's is at bedside during assessment. Care providers, pharmacy,?and demographics verified/updated. ? Presentation: Pt c/o occasional palpitations-in Afib w/ RVR in Vaughn's office Admitting dx: Afib w/ RVR PCP: Alex Specialists: Vaughn, cardio; Richie, optha; Ara, derm in [place] Preferred Pharmacy: [facility] Insurance: PEER Prescription Benefit:?SumMCR-pt to be sent home on Eliquis and per pharm, costs is $197.00 and pt provided with Eliquis 30 day free trial card w/ instruction Living Will/HPOA: Pt does have LW/HPOA and states they provided to [facility] this visit. Pt states , Hailey Quiñones, is HPOA. LNOK: Hailey Quiñones, /HPOA Living Arrangements: Pt lives with in split level home and states no concerns at home. Pt is independent with ADL's. Transportation: Pt drives self and states no transportation concerns. DME/HHC: Pt states has a cpap thru [employer] and states no need for any further DME. Pt states no hx of HHC or SNF in past. Pt state no concerns with going home at time of discharge. Pt is retired. Pt states does not smoke cigarettes but does drink 2-3 glasses bourbon every night. Pt state no further concerns/needs. CM to follow for any further questions/concerns/needs. Advised pt to ask for CM if any further questions/concerns/needs arise, voices understanding. ? Pt Goal: Home Plan[place] KATHLEEN HAILE
[2022-01-09 15:26] LABS: Pathologist Review Reviewed
== END 2022-01-07 14:10 | disposition home or self-care (01) | DRG 310 ==
LOC: ED 10:59 → PCU 11:18
PROVIDERS: Nurse Practitioner; Nurse Practitioner Family; Admitting Provider Internal Medicine; Emergency Provider Student in an Organized Health Care Education/Training Program; PCP Family Medicine Geriatric Medicine; Visit Provider Student in an Organized Health Care Education/Training Program
DX: I48.91 Unspecified atrial fibrillation (principal); E66.9 Obesity, unspecified; K76.0 Fatty (change of) liver, not elsewhere classified; L71.9 Rosacea, unspecified; K76.89 Other specified diseases of liver; I10 Essential (primary) hypertension; G47.33 Obstructive sleep apnea (adult) (pediatric); E80.7 Disorder of bilirubin metabolism, unspecified; R73.9 Hyperglycemia, unspecified; Z85.820 Personal history of malignant melanoma of skin; Z68.35 Body mass index [BMI] 35.0-35.9, adult
CPT/HCPCS: 36415; 71045; 76705; 80048; 80076; 83036; 83735; 83880; 84443; 84484; 85018; 85025; 93005; 93306; 97110; 99285; J7030; Q9957; A4216; C8929

== ENCOUNTER → 2022-01-11 | Outpatient (CLI) | payer MEDICARE, SELFPAY ==
[2022-01-11 12:58] LABS: ALB/GLOB Ratio 0.7 RATIO (0.9-2.4); AST(SGOT) 43 U/L (15-37); Alanine Aminotransfer ALT/SGPT 49 U/L (16-61); Albumin, Serum 2.9 g/dL (3.2-5.0); Alkaline Phosphatase 52 U/L (45-117); Anion Gap 5 (5-15); BUN 13 mg/dL (7-18); BUN/Creat Ratio 11.7 RATIO (10-20); Calcium,Total 9.2 mg/dL (8.5-10.1); Chloride 102 mmol/L (98-107); Creatinine, Serum 1.11 mg/dL (0.70-1.30); EST Glomerular Filtration Rate 68 mL/min (>60); Est Glom Filt Rate - Afr Amer 82 mL/min (>60); Globulin 3.9 g/dL (2.2-4.2); Glucose 104 mg/dL (74-106); Protein, Total 6.8 g/dL (6.4-8.2); Sodium Level 138 mmol/L (136-145)
== END | disposition home or self-care (01) ==
LOC: POLAB3 11:15
PROVIDERS: PCP Family Medicine Geriatric Medicine; Visit Provider Family Medicine Geriatric Medicine
DX: E80.6 Other disorders of bilirubin metabolism (principal)
CPT/HCPCS: 36415; 80053

== ENCOUNTER 2022-01-20 10:30 | Outpatient (RCR) | payer MEDICARE, SELFPAY ==
--- NOTE | 2021-12-29 10:52 | HP.PTEVAL_ITS ---
Patient's Visit Information BERNIE HEART Jr. is a 76 year old M referred to Physical Therapy by BEAU PARKER with a diagnosis of Left Hip OA. Date of Evaluation: 12/29/21 Physical Therapist: Rocío Dexter DPT - Visit Plan Frequency: 2x /Week Duration: 4 Weeks Plan: Left Hip OA- Focus on LE and core strength/stabilization and functional mobility. HEP Given IE: Glut Sets, Seated hip abd with GTB, Seated hip add with ball, Seated Hamstring Stretch - Subjective Patient reports that he has a left arthritic hip. About 6 weeks ago it started to bother him- came on hard- insidious onset. Went into Dr. Johnson who took x-rays which showed OA. He has had knee pain for a long time that comes and goes depending on activity. His hip bothers him when he is standing for a long period of time or putting his shoes on. Eases: moving, walking. Pain is never consistent on activity. The pain goes away immediately if he sits down- he has little pain at night. Sleep: not disturbed due to the hips- uses a CPAP. Pain is located in the groin and in the lateral aspect of the hip. No radiating pain. Is working with a neurologist for neuropathy on both LE- he had an electronic test and goes back on Sunday. Worst: 5/10. Describes the pain as achy but can get sharp sometimes. Eases: moving around, Aleve. Goals: to be able to do more and have less pain. He is pretty active- has limited his activity. He goes to [place] for exercise. He does lots of stairs due to living in a split level. Struggles to mow on his hill- self propelled mower. PMHx: HTN, rosacea Meds: HCTZ, metoprolol, losartan, doxycycline, Testosterone - Objective Posture: FH, RS can correct with cues but does not maintain. Gait: slightly antalgic-decreased stance on the left LE with decreased stride length and ansley. HR/TR: able. SLS: 5 sec then LOB- reports instability from neuropathy. Sit to Stand: uses UE A. ROM: WFL- pain with IR of the hip. Strength: Core: fair, Hip: 4/5 throughout with discomfort with IR testing, Knee: 4+/5, Ankle: 5/5. Flex: HS: severe, Gastroc: moderate. Stairs: asc/desc 8 recip with 2 HR- moderate decreased control with descent. - Special Tests L Hip Scour: Positive L Hip SAMMIE - Intraarticular Pathology: Positive L Hip FADDIR - Labrum: Positive L Hip Trendelenberg - Glut Medius: Positive - Balance/Special Test Scores Lower Extremity Functional Score: 53 - Goals Goal 1:: Patient will be I with HEP and progression Goal Time Frame: 4-6 Weeks Goal 2:: Patient will asc/desc 8 stairs recip with no HR Goal Time Frame: 4-6 Weeks Goal 3:: Patient will report 80% improvement Goal Time Frame: 4-6 Weeks Goal 4:: Patient will maintain proper posture t/o tx session to demo increased core s/s Goal Time Frame: 4-6 Weeks Goal 5:: Patient will report ability to stand for 30 min without pain ([employer] activities) Goal Time Frame: 4-6 Weeks - Rehabilitation Potential Physical Therapy Diagnosis: Patient presents with hypomobility- he has decreased LE and core strength/stabilization, flex, proprioception and muscular endurance leading to abnormal gait pattern and increased pain with ADL's Rehabilitation Potential: Good - Anticipated Interventions Patient/Client Instruction: Educate patient on: Benefits of Fitness Program Therapeutic Exercise to Include: Strength training, Endurance training, Balance training, Coordination, Agility training, Body mechanics, Postural training, Flexibilty training, Gait and locomotor training, Neuromotor development, Dynamic Lumbar Stabilization, Scapular Strength/Stabilization For the Purpose of:: To improve muscle performance and motor function TENS: Yes Cryotherapy (ice pack, ice massage): Yes Thermo therapy (hot pack): Yes Thank you for the opportunity to evaluate your patient. For Medicare and Medicare HMO plans, please review the plan of care and approve it. It will need to be FAXED BACK to us at [phone] for Medicare purposes. For Medicare only, by signing this I certify the plan of care. Please let me know if there are questions or concerns regarding this plan of care. Physician Signature: Date:
--- NOTE | 2022-01-20 11:20 | HP.PTDCSUM ---
It has been my pleasure to treat [facility] . referred by BEAU PARKER, with the diagnosis of Left Hip OA for a total of 6 visit(s). Discharge Date: Please see the following information for a summary of their discharge status. Subjective: Patient reports that he was in the hospital for A-fib and he is now on meds for stabilization. 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 He reports that hip just depends. When he does the exercises for his hip the knees hurt more. He has a lot of pain just standing for long durations. He feels better when he moves around. He mowed the backyard yesterday and the steep hill is still a little of a concern. L hip Pain Intensity (Out of 10): 3 bilat knees Pain Intensity (Out of 10): 0 % Improvement: 40 Objective/Function: Posture: FH, RS can correct with cues but does not maintain. Gait: slightly antalgic-decreased stance on the left LE with decreased stride length and ansley- wide SHANNON. HR/TR: able. SLS: 5 sec then LOB- reports instability from neuropathy. Sit to Stand: no UE A but does report discomfort. ROM: WFL- pain with IR of the hip. Strength: Core: fair, Hip: 4+/5 throughout with discomfort with IR testing, Knee: 4+/5, Ankle: 5/5. Flex: HS: severe, Gastroc: moderate. Stairs: asc/desc 8 recip with 2 HR- moderate decreased control with descent. - Special Tests. L Hip Scour: Positive. L Hip SAMMIE - Intraarticular Pathology: Positive. L Hip FADDIR - Labrum: Positive. L Hip Trendelenberg - Glut Medius: Positive Goal 1:: Patient will be I with HEP and progression Goal Progress: Goal Met Goal 2:: Patient will asc/desc 8 stairs recip with no HR Goal Progress: Progressing Goal 3:: Patient will report 80% improvement Goal Progress: Progressing Goal 4:: Patient will maintain proper posture t/o tx session to demo increased core s/s Goal Progress: Progressing Goal 5:: Patient will report ability to stand for 30 min without pain (orthodoxy activities) Goal Progress: Progressing Plan: 01/20/22: Discharge to I HEP and moving to [place]. Left Hip OA- Focus on LE and core strength/stabilization and functional mobility If there are questions or concerns regarding this patient's physical therapy, please feel free to call me at [phone]. Thank you for the referral of this patient. Sincerely, Rocío Dexter, CORYT Balance/Gait/Functional tests - Balance/Special Test Scores Lower Extremity Functional Score: 44
== END 2022-01-20 13:23 | disposition home or self-care (01) ==
LOC: PT 10:30
PROVIDERS: PCP Family Medicine Geriatric Medicine
DX: M16.9 Osteoarthritis of hip, unspecified (principal)
CPT/HCPCS: 97110; 97162; 97164

== ENCOUNTER → 2022-01-31 | Outpatient (CLI) | payer MEDICARE, SELFPAY ==
--- NOTE | 2022-01-31 09:00 | US_ITS ---
STUDY: ABDOMINAL ULTRASOUND - ELASTOGRAPHY REASON FOR VISIT: Male, 76 years old. Fatty infiltration of the liver. TECHNIQUE: Liver stiffness measurements were obtained on a [employer]app RS 85 ultrasound machine using a CA 1-7 probe following the SRU guidelines. 3 measurements were obtained using a 2-D-SWE method. The IQR/M was 21% suggesting a quality data set. TECHNICAL QUALITY: Adequate. COMPARISON: Comparison is made with prior ultrasound dated 01/06/2022. FINDINGS: Liver: Fatty infiltration of the liver. Median liver stiffness measured 9.1 kPa. US/Elastography Parenchyma/Organ IMPRESSION: Liver stiffness measures 9.1 kPa compatible with F2-F3 (Mild to moderate liver fibrosis) Metavir score. Electronically Signed: Byron John MD at 8:44 EDT ,
== END | disposition home or self-care (01) ==
LOC: US 08:57
PROVIDERS: PCP Family Medicine Geriatric Medicine; Referring Provider Family Medicine Geriatric Medicine; Visit Provider Family Medicine Geriatric Medicine
DX: K76.0 Fatty (change of) liver, not elsewhere classified (principal)
CPT/HCPCS: 76981

== ENCOUNTER → 2022-02-27 | Outpatient (CLI) | payer MEDICARE, SELFPAY ==
[2022-02-27 17:13] LABS: Absolute Lymphocyte Count 1.84 X10^3/uL (0.83-4.51); Absolute Neutrophil Count 5.9 X10^3/uL (2.0-7.7); Basophil# 0.03 X10^3/uL; Basophil% 0.3 % (0-1); Eosinophil# 0.08 X10^3/uL; Eosinophils% 0.9 % (0-5); Lymphocyte # 1.84 X10^3/ul (0.83-4.51); Mean Corp Hgb Conc 32.9 g/dL (32-36); Mean Corpuscular Hgb 30.5 pg (27.0-32.0); Mean Corpuscular Volume 92.6 fL (80-94); Monocyte# 0.87 X10^3/uL; Monocyte% 9.9 % (0-10); NRBC Flagged by Analyzer 0 % (0-5); Neutrophil % 67.4 % (47-70); Platelet Count 243 K/mm3 (150-450); RBC Distribution Width CV 14.3 % (11.6-14.6); RBC Distribution Width SD 48.4 fl (35.1-43.9); White Blood Count 8.8 K/mm3 (4.4-11.0)
[2022-02-27 17:29] LABS: Hematocrit 56.5 % (40-54); Hemoglobin 18.6 g/dL (13.0-16.5)
[2022-02-27 17:37] LABS: Vitamin D,25 Hydroxy 60.3 ng/mL
[2022-02-27 17:49] LABS: AST(SGOT) 21 U/L (15-37); Alanine Aminotransfer ALT/SGPT 22 U/L (16-61); Albumin, Serum 3.3 g/dL (3.2-5.0); Alkaline Phosphatase 60 U/L (45-117); Anion Gap 8 (5-15); BUN 16 mg/dL (7-18); BUN/Creat Ratio 13.7 RATIO (10-20); Calcium,Total 9.2 mg/dL (8.5-10.1); Chloride 103 mmol/L (98-107); Creatinine, Serum 1.17 mg/dL (0.70-1.30); EST Glomerular Filtration Rate 64 mL/min (>60); Est Glom Filt Rate - Afr Amer 77 mL/min (>60); Globulin 3.4 g/dL (2.2-4.2); Glucose 111 mg/dL (74-106); Potassium 3.8 mmol/L (3.5-5.1); Protein, Total 6.7 g/dL (6.4-8.2); Sodium Level 139 mmol/L (136-145); Thyroid Stim Hormone (TSH) 1.89 uIU/mL (0.358-3.74)
[2022-02-28 13:55] LABS: Pathologist Review Reviewed
== END | disposition home or self-care (01) ==
LOC: POLAB3 12:27
PROVIDERS: PCP Family Medicine Geriatric Medicine; Visit Provider Family Medicine Geriatric Medicine
DX: I10 Essential (primary) hypertension (principal); E55.9 Vitamin D deficiency, unspecified; F52.8 Other sexual dysfunction not due to a substance or known physiological condition
CPT/HCPCS: 36415; 80053; 82306; 84403; 84443; 85025